=== PATIENT | male | born 1950 | race Caucasian/White ===

== ENCOUNTER 2016-12-06 17:32 | Emergency (ER) | payer MEDICARE, MEDICAID ==
[~2016-12-06] VITALS: Ht 182.9 cm; Wt 86.0 kg
[~2016-12-06 17:32] MED LIST: CELE100C PO; DOXY100C PO; GABA800T PO; IMIPRAM HCL PO; OLME1TAB18 PO; P50 PO; PANT40TA4 PO; TIOT18CA3 IH; TRAM50TA3 PO; TUSSIN; benadryl; dilaudid; fluoxetine; naproxen PO; nexium; risperidone PO; seroquel; tramadol PO
[2016-12-06] MEDS ORDERED: KETOROLAC 60MG/2ML VIAL IM ONE (19:00)
[2016-12-06] MEDS ORDERED: HYDROCODONE/ACETAMINOPHEN 10/325MG TABLET PO ONE (21:45)
[2016-12-06 22:31] VITALS: BP 127/84
== END 2016-12-06 22:32 | disposition home or self-care (01) ==
LOC: ER 18:19
DX: S42.034A Nondisplaced fracture of lateral end of right clavicle, initial encounter for closed fracture (principal); M19.90 Unspecified osteoarthritis, unspecified site; I11.0 Hypertensive heart disease with heart failure; F32.9 Major depressive disorder, single episode, unspecified; J44.9 Chronic obstructive pulmonary disease, unspecified; Z86.73 Personal history of transient ischemic attack (TIA), and cerebral infarction without residual deficits; Z88.0 Allergy status to penicillin; W01.0XXA Fall on same level from slipping, tripping and stumbling without subsequent striking against object, initial encounter; Y93.89 Activity, other specified; Y92.480 Sidewalk as the place of occurrence of the external cause
CPT/HCPCS: 73030; 96372; 99284; J1885; A4565

== ENCOUNTER 2017-03-18 13:21 | Emergency (ER) | payer MEDICARE, MEDICAID ==
[~2017-03-18] VITALS: Ht 170.2 cm; Wt 82.0 kg
[2017-03-18] MEDS ORDERED: HYDROCODONE/ACETAMINOPHEN 5/325MG TABLET PO ONE (14:30)
[2017-03-18 16:10] VITALS: BP 157/89
[2017-03-18] MEDS ORDERED: LIDOCAINE/EPINEPHR/TETRACAINE 3ML TP ONE (16:15)
== END 2017-03-18 17:42 | disposition home or self-care (01) ==
LOC: ER 13:49
DX: S01.01XA Laceration without foreign body of scalp, initial encounter (principal); I50.9 Heart failure, unspecified; I11.0 Hypertensive heart disease with heart failure; J44.9 Chronic obstructive pulmonary disease, unspecified; F32.9 Major depressive disorder, single episode, unspecified; Z86.73 Personal history of transient ischemic attack (TIA), and cerebral infarction without residual deficits; Z88.0 Allergy status to penicillin; Y08.89XA Assault by other specified means, initial encounter; Y93.89 Activity, other specified; Y92.89 Other specified places as the place of occurrence of the external cause; Y99.8 Other external cause status
CPT/HCPCS: 12002; 70450; 99284

== ENCOUNTER 2018-03-04 04:31 | Inpatient (IN) | payer MEDICARE, MEDICAID ==
[~2018-03-04] VITALS: Ht 170.2 cm; Wt 92.5 kg
[2018-03-04] MEDS ORDERED: METHYLPREDNISOLONE SOD SUCC 125 MG/2 ML VIAL IV STA (10:37)
[2018-03-04] MEDS ORDERED: ALBUTEROL (0.083%) 2.5MG/3ML NEB HHN STA ×2 (10:37→13:12)
[2018-03-04 11:30] LABS: BASOPHILS % 0.3 % (0.0-2.0); EOSINOPHILS % 5.5 % (0.0-5.0); HEMATOCRIT. 45.2 % (42.0-52.0); HEMOGLOBIN. 15.2 g/dL (14.0-18.0); MEAN CORPUSCULAR HEMOGLOBIN 29.4 pg (28.0-32.0); MEAN CORPUSCULAR VOLUME 87.5 fL (80.0-94.0); MEAN PLATELET VOLUME 8.6 fl (7.4-10.4); MONOCYTES % 7.6 % (2.0-8.0); NEUTROPHILS % 58.6 % (40.0-76.0); PLATELET 196 x1000/uL (130-400); RED BLOOD CELL COUNT 5.16 mill/uL (4.7-6.1); RED CELL DISTRIBUTION WIDTH 14.2 % (11.6-14.6)
[2018-03-04 11:36] LABS: CHLORIDE 109 mEq/L (98-107)
[2018-03-04] MEDS ORDERED: ACETAMINOPHEN 500MG TABLET PO NR (12:00)
[2018-03-04] MEDS ORDERED: IPRATROPIUM BROMIDE (0.02%) 0.5MG/2.5ML NEB HHN STA (13:12)
[2018-03-04] MEDS ORDERED: IPRATROPIUM/ALBUTEROL 0.5-3(2.5)MG/3ML NEB HHN PRN (16:00)
[2018-03-04] MEDS ORDERED: HYDROCODONE/ACETAMINOPHEN 5/325MG TABLET PO ONE ×2 (16:45→17:30)
[2018-03-04] MEDS ORDERED: IPRATROPIUM/ALBUTEROL 0.5-3(2.5)MG/3ML NEB HHN SCH (18:00)
[2018-03-04 23:00] VITALS: BP_SYST 148; BP_DIAS 82; BP_DIAS 84
[2018-03-04] MEDS ORDERED: ACETAMINOPHEN 325MG TABLET PO PRN (23:30)
[2018-03-05] MEDS: COLCHICINE 0.6MG TABLET PO SCH ×3 (00:51→21:44)
[2018-03-05] MEDS: NICOTINE 21MG PATCH TD SCH ×2 (00:51→21:44)
[2018-03-05 04:00] VITALS: BP 100/58
[2018-03-05] MEDS ORDERED: METHYLPREDNISOLONE SOD SUCC 125 MG/2 ML VIAL IV SCH (06:00)
[2018-03-05] MEDS: IPRATROPIUM/ALBUTEROL 0.5-3(2.5)MG/3ML NEB HHN SCH ×3 (08:21→20:25)
[2018-03-05] MEDS ORDERED: ACETAMINOPHEN 325MG TABLET PO PRN (09:30)
[2018-03-05] MEDS ORDERED: DIPHENHYDRAMINE 50MG/ML VIAL IV PRN (09:30)
[2018-03-05] MEDS ORDERED: MAGNESIUM/ALUMINUM HYDROXIDE/SIMETHICONE 30ML UDC PO PRN (09:30)
[2018-03-05] MEDS ORDERED: BISACODYL 10MG SUPP PR PRN (09:30)
[2018-03-05] MEDS ORDERED: ACETAMINOPHEN 650MG/20.3ML UDC GT PRN (09:30)
[2018-03-05] MEDS ORDERED: DOCUSATE SODIUM 100MG CAPSULE PO PRN (09:30)
[2018-03-05] MEDS ORDERED: CLONIDINE 0.1MG TABLET PO PRN (09:30)
[2018-03-05] MEDS ORDERED: NA PHOS,M-B/NA PHOS,DI-BA ENEMA 118ML PR PRN (09:30)
[2018-03-05] MEDS ORDERED: BISACODYL 5MG TABLET PO PRN (09:30)
[2018-03-05] MEDS ORDERED: GUAIFENESIN 200MG/10ML SUGAR FREE UDC PO PRN (09:30)
[2018-03-05] MEDS ORDERED: ONDANSETRON HCL 4MG/2ML INJ IV PRN (09:30)
[2018-03-05] MEDS ORDERED: ACETAMINOPHEN 650MG SUPP PR PRN (09:30)
[2018-03-05 12:00] VITALS: BP 143/71
[2018-03-05] MEDS: HYDROCODONE/ACETAMINOPHEN 10/325MG TABLET PO PRN ×2 (13:43→21:44)
[2018-03-05 16:00] VITALS: BP 124/68
[2018-03-05 20:00] VITALS: BP 146/56
[2018-03-05] MEDS: METHYLPREDNISOLONE SOD SUCC 40 MG/ML VIAL IV SCH (21:56)
[2018-03-05] MEDS: ENOXAPARIN 30MG/0.3ML SYR SUBCUT SCH (21:58)
[2018-03-06] VITALS: BP 136/50
[2018-03-06] MEDS: IPRATROPIUM/ALBUTEROL 0.5-3(2.5)MG/3ML NEB HHN SCH ×4 (02:41→20:37)
[2018-03-06 04:00] VITALS: BP 124/71
[2018-03-06] MEDS: METHYLPREDNISOLONE SOD SUCC 40 MG/ML VIAL IV SCH ×2 (05:52→17:33)
[2018-03-06] MEDS: HYDROCODONE/ACETAMINOPHEN 10/325MG TABLET PO PRN ×3 (05:53→22:53)
[2018-03-06 08:00] VITALS: BP 142/72
[2018-03-06 08:29] LABS: HEMATOCRIT. 43.5 % (42.0-52.0); HEMOGLOBIN. 14.3 g/dL (14.0-18.0); MEAN CORPUSCULAR HEMOGLOBIN 28.8 pg (28.0-32.0); MEAN CORPUSCULAR VOLUME 87.8 fL (80.0-94.0); MEAN PLATELET VOLUME 9.3 fl (7.4-10.4); PLATELET 227 x1000/uL (130-400); RED BLOOD CELL COUNT 4.96 mill/uL (4.7-6.1)
[2018-03-06] MEDS: COLCHICINE 0.6MG TABLET PO SCH ×2 (08:32→21:05)
[2018-03-06] MEDS: ENOXAPARIN 30MG/0.3ML SYR SUBCUT SCH ×2 (08:34→21:00)
[2018-03-06 09:29] LABS: CHLORIDE 106 mEq/L (98-107)
[2018-03-06 09:38] LABS: HDL CHOLESTEROL 73 mg/dL (40-59)
[2018-03-06 09:45] LABS: LDL CHOLESTEROL 67 mg/dL (5-100)
[2018-03-06 11:59] LABS: PLATELET ESTIMATE NORMAL
[2018-03-06 12:00] VITALS: BP 148/77
[2018-03-06 16:00] VITALS: BP 155/81
[2018-03-06] MEDS: GUAIFENESIN 600MG ER TABLET PO SCH ×2 (17:33→21:05)
[2018-03-06 20:00] VITALS: BP 143/77
[2018-03-06 21:06] LABS: CLARITY URINE CLEAR (CLEAR); COLOR URINE YELLOW (YELLOW); KETONES URINE NEGATIVE (NEGATIVE); LEUKOCYTE ESTERASE URINE NEGATIVE (NEGATIVE); NITRITE URINE NEGATIVE (NEGATIVE); OCCULT BLOOD URINE NEGATIVE (NEGATIVE); PROTEIN URINE NEGATIVE (NEGATIVE); SPECIFIC GRAVITY URINE 1.017 (1.005-1.030); UROBILINOGEN URINE 0.2 E.U./dL (0.2-1.0)
[2018-03-06] MEDS: NICOTINE 21MG PATCH TD SCH (21:06)
[2018-03-06 21:20] LABS: *AMPHETAMINES SCREEN URINE NEGATIVE (NEGATIVE); *BARBITURATES SCREEN URINE NEGATIVE (NEGATIVE); *BENZODIAZEPINES SCREEN URINE NEGATIVE (NEGATIVE); *COCAINE SCREEN URINE PRESUMTIVE POSITIVE (NEGATIVE); METHADONE URINE SCREEN NEGATIVE (NEGATIVE); OPIATES URINE SCREEN PRESUMTIVE POSITIVE (NEGATIVE)
[2018-03-06 21:21] LABS: CANNABINOID URINE SCREEN NEGATIVE (NEGATIVE); PHENCYCLIDINE URINE SCREEN NEGATIVE (NEGATIVE)
[2018-03-07] VITALS: BP 142/73
[2018-03-07] MEDS: IPRATROPIUM/ALBUTEROL 0.5-3(2.5)MG/3ML NEB HHN SCH ×2 (01:29→09:09)
[2018-03-07 04:00] VITALS: BP 135/56
[2018-03-07 08:00] VITALS: BP 170/85
[2018-03-07] MEDS: GUAIFENESIN 600MG ER TABLET PO SCH (08:52)
[2018-03-07] MEDS: METHYLPREDNISOLONE SOD SUCC 40 MG/ML VIAL IV SCH ×2 (08:52→17:39)
[2018-03-07] MEDS: COLCHICINE 0.6MG TABLET PO SCH (08:52)
[2018-03-07] MEDS: ENOXAPARIN 30MG/0.3ML SYR SUBCUT SCH (09:00)
[2018-03-07] MEDS: HYDROCODONE/ACETAMINOPHEN 10/325MG TABLET PO PRN (10:09)
[2018-03-07 12:30] VITALS: BP 144/74
[2018-03-07 16:00] VITALS: BP 147/78
[2018-03-07] MEDS: NICOTINE 21MG PATCH TD SCH (17:57)
== END 2018-03-07 18:00 | disposition home or self-care (01) | DRG 917 ==
LOC: ER 04:31 → 7WST 14:41 → EDBEDREQ 15:06 → ENRESERV 20:41 → 6WST 03-07 11:34
PROVIDERS: ADMIT Family Medicine; ATTEND Family Medicine
DX: T40.5X1A Poisoning by cocaine, accidental (unintentional), initial encounter (principal); J96.01 Acute respiratory failure with hypoxia; J68.0 Bronchitis and pneumonitis due to chemicals, gases, fumes and vapors; I10 Essential (primary) hypertension; F17.210 Nicotine dependence, cigarettes, uncomplicated; F32.9 Major depressive disorder, single episode, unspecified; M19.90 Unspecified osteoarthritis, unspecified site; Y92.89 Other specified places as the place of occurrence of the external cause; Z82.49 Family history of ischemic heart disease and other diseases of the circulatory system; Z88.0 Allergy status to penicillin; Z86.73 Personal history of transient ischemic attack (TIA), and cerebral infarction without residual deficits; Z59.0 Homelessness; Z71.51 Drug abuse counseling and surveillance of drug abuser
CPT/HCPCS: 36415; 71045; 73030; 80061; 80305; 83880; 84484; 94640; 96374; 99285; J1650; J2920; J2930; J7611; J7620

== ENCOUNTER 2018-03-21 01:08 | Emergency (ER) | payer MEDICARE, MEDICAID ==
[~2018-03-21] VITALS: Ht 182.9 cm; Wt 96.0 kg
[~2018-03-21 01:08] MED LIST changes: -IMIPRAM HCL PO; -TUSSIN; -benadryl; -dilaudid; -fluoxetine; -naproxen PO; -nexium; -risperidone PO; -seroquel; -tramadol PO
[2018-03-21 01:14] VITALS: BP 143/70
== END 2018-03-21 08:27 | disposition left against medical advice (07) ==
LOC: ER 01:21
DX: Z53.21 Procedure and treatment not carried out due to patient leaving prior to being seen by health care provider (principal)

== ENCOUNTER 2018-03-21 22:14 | Emergency (ER) | payer MEDICARE, MEDICAID ==
[~2018-03-21] VITALS: Ht 170.2 cm; Wt 93.0 kg
[2018-03-22 01:49] VITALS: BP 157/88
== END 2018-03-22 06:02 | disposition left against medical advice (07) ==
LOC: ER 22:14
DX: M25.512 Pain in left shoulder (principal); Z53.21 Procedure and treatment not carried out due to patient leaving prior to being seen by health care provider

== ENCOUNTER 2018-03-22 07:09 | Emergency (ER) | payer MEDICARE, MEDICAID ==
[~2018-03-22] VITALS: Ht 170.2 cm; Wt 95.0 kg
[2018-03-22] MEDS ORDERED: KETOROLAC 30MG/ML VIAL IV STA (11:10)
[2018-03-22] MEDS ORDERED: METHYLPREDNISOLONE SOD SUCC 125 MG/2 ML VIAL IV STA (11:10)
[2018-03-22] MEDS ORDERED: IPRATROPIUM/ALBUTEROL 0.5-3(2.5)MG/3ML NEB HHN ONE ×2 (11:15→15:00)
[2018-03-22 11:58] LABS: BASOPHILS % 0.8 % (0.0-2.0); EOSINOPHILS % 6.6 % (0.0-5.0); HEMATOCRIT. 41.7 % (42.0-52.0); HEMOGLOBIN. 13.9 g/dL (14.0-18.0); LYMPHOCYTES % 21.9 % (20.0-50.0); MEAN CORPUSCULAR HEMOGLOBIN 29.3 pg (28.0-32.0); MEAN CORPUSCULAR VOLUME 87.9 fL (80.0-94.0); MEAN PLATELET VOLUME 8.4 fl (7.4-10.4); MONOCYTES % 8.5 % (2.0-8.0); NEUTROPHILS % 62.2 % (40.0-76.0); PLATELET 171 x1000/uL (130-400); RED BLOOD CELL COUNT 4.74 mill/uL (4.7-6.1); RED CELL DISTRIBUTION WIDTH 13.8 % (11.6-14.6)
[2018-03-22 12:05] LABS: CHLORIDE 111 mEq/L (98-107); PARTIAL THROMBOPLASTIN TIME 35.9 sec (23.4-31.0); PROTHROMBIN TIME 10.1 sec (9.1-11.1)
[2018-03-22 12:10] LABS: ETHANOL BLOOD < 10 mg/dL
[2018-03-22] MEDS ORDERED: KETOROLAC 60MG/2ML VIAL IM ONE (17:30)
[2018-03-22 17:43] VITALS: BP 154/72
== END 2018-03-22 17:45 | disposition home or self-care (01) ==
LOC: ER 07:33 → CANBEDREQ 03-23 01:54
DX: J44.9 Chronic obstructive pulmonary disease, unspecified (principal); M75.102 Unspecified rotator cuff tear or rupture of left shoulder, not specified as traumatic; I10 Essential (primary) hypertension; M19.90 Unspecified osteoarthritis, unspecified site; F14.10 Cocaine abuse, uncomplicated; F17.200 Nicotine dependence, unspecified, uncomplicated; Z86.73 Personal history of transient ischemic attack (TIA), and cerebral infarction without residual deficits; Z59.0 Homelessness; Z88.0 Allergy status to penicillin; Z79.899 Other long term (current) drug therapy; Z98.890 Other specified postprocedural states
CPT/HCPCS: 36415; 71045; 73030; 80053; 83880; 84484; 85025; 85610; 85730; 87186; 94640; 96372; 96374; 96375; 99284; J1885; J2930; J7620

== ENCOUNTER 2018-07-12 10:59 | Emergency (ER) | payer MEDICARE, MEDICAID ==
[~2018-07-12] VITALS: Ht 170.2 cm; Wt 77.0 kg
[2018-07-12] MEDS ORDERED: IBUPROFEN 600MG TABLET PO STA (12:17)
[2018-07-12 14:47] VITALS: BP 140/80
== END 2018-07-12 14:51 | disposition home or self-care (01) ==
LOC: ER 10:59
DX: M25.512 Pain in left shoulder (principal); M25.511 Pain in right shoulder; F32.9 Major depressive disorder, single episode, unspecified; I10 Essential (primary) hypertension; F17.210 Nicotine dependence, cigarettes, uncomplicated; F14.10 Cocaine abuse, uncomplicated; Z88.0 Allergy status to penicillin; Z86.59 Personal history of other mental and behavioral disorders; V02.99XA Pedestrian with other conveyance injured in collision with two- or three-wheeled motor vehicle, unspecified whether traffic or nontraffic accident, initial encounter; Y93.89 Activity, other specified; Y92.89 Other specified places as the place of occurrence of the external cause; Y99.8 Other external cause status
CPT/HCPCS: 73030; 99283

== ENCOUNTER 2018-10-26 20:16 | Emergency (ER) | payer MEDICARE, MEDICAID ==
[~2018-10-26] VITALS: Ht 170.2 cm; Wt 82.0 kg
[2018-10-26 20:52] VITALS: BP 130/110
== END 2018-10-26 20:20 | disposition left against medical advice (07) ==
LOC: ER 20:16
DX: Z53.21 Procedure and treatment not carried out due to patient leaving prior to being seen by health care provider (principal); I10 Essential (primary) hypertension; G47.00 Insomnia, unspecified; F17.200 Nicotine dependence, unspecified, uncomplicated; Z88.0 Allergy status to penicillin; Z86.73 Personal history of transient ischemic attack (TIA), and cerebral infarction without residual deficits

== ENCOUNTER 2018-12-01 05:10 | Emergency (ER) | payer MEDICARE, MEDICAID ==
[~2018-12-01] VITALS: Ht 177.8 cm; Wt 82.0 kg
[2018-12-01 05:33] VITALS: BP 149/69
[2018-12-01] MEDS ORDERED: MAGNESIUM 2 G PREMIX 50 ML IV STA (06:10)
[2018-12-01] MEDS ORDERED: METHYLPREDNISOLONE SOD SUCC 125 MG/2 ML VIAL IV STA (06:10)
[2018-12-01] MEDS ORDERED: IPRATROPIUM BROMIDE (0.02%) 0.5MG/2.5ML NEB HHN STA (06:10)
[2018-12-01] MEDS ORDERED: ALBUTEROL (0.083%) 2.5MG/3ML NEB HHN STA (06:10)
[2018-12-01 06:29] LABS: BASOPHILS % 0.4 % (0.0-2.0); EOSINOPHILS % 2.2 % (0.0-5.0); HEMOGLOBIN. 14.6 g/dL (14.0-18.0); LYMPHOCYTES % 24.5 % (20.0-50.0); MEAN CORPUSCULAR HEMOGLOBIN 29.5 pg (28.0-32.0); MEAN CORPUSCULAR VOLUME 87.2 fL (80.0-94.0); MEAN PLATELET VOLUME 8.5 fl (7.4-10.4); MONOCYTES % 9.2 % (2.0-8.0); NEUTROPHILS % 63.7 % (40.0-76.0); PLATELET 163 x1000/uL (130-400); RED BLOOD CELL COUNT 4.93 mill/uL (4.7-6.1); RED CELL DISTRIBUTION WIDTH 14.6 % (11.6-14.6)
[2018-12-01 06:33] LABS: CHLORIDE 110 mEq/L (98-107)
== END 2018-12-01 07:24 | disposition left against medical advice (07) ==
LOC: ER 05:10
DX: J45.901 Unspecified asthma with (acute) exacerbation (principal); F91.1 Conduct disorder, childhood-onset type; I10 Essential (primary) hypertension; F17.200 Nicotine dependence, unspecified, uncomplicated; Z88.0 Allergy status to penicillin
CPT/HCPCS: 36415; 71045; 80053; 83880; 84484; 85025; 94640; 99284; J7611

== ENCOUNTER 2018-12-21 12:43 | Inpatient (IN) | payer MEDICARE, MEDICAID ==
[~2018-12-21] VITALS: Ht 152.4 cm; Wt 81.2 kg
[2018-12-21] MEDS ORDERED: IBUPROFEN 600MG TABLET PO ONE (13:45)
[2018-12-21] MEDS ORDERED: IPRATROPIUM BROMIDE (0.02%) 0.5MG/2.5ML NEB HHN STA (14:54)
[2018-12-21] MEDS ORDERED: ALBUTEROL (0.083%) 2.5MG/3ML NEB HHN STA (14:54)
[2018-12-21] MEDS ORDERED: BACITRACIN ZINC OINT UDPKT TOP ONE (15:45)
[2018-12-21] MEDS ORDERED: IBUPROFEN 600MG TABLET PO PRN (17:45)
[2018-12-21 18:26] LABS: BASOPHILS % 0.3 % (0.0-2.0); CHLORIDE 107 mEq/L (98-107); EOSINOPHILS % 0.9 % (0.0-5.0); HEMATOCRIT. 44.2 % (42.0-52.0); HEMOGLOBIN. 14.9 g/dL (14.0-18.0); LYMPHOCYTES % 16.3 % (20.0-50.0); MEAN CORPUSCULAR HEMOGLOBIN 29.1 pg (28.0-32.0); MEAN CORPUSCULAR VOLUME 86.6 fL (80.0-94.0); MEAN PLATELET VOLUME 8.3 fl (7.4-10.4); MONOCYTES % 10.8 % (2.0-8.0); NEUTROPHILS % 71.7 % (40.0-76.0); PLATELET 181 x1000/uL (130-400); RED BLOOD CELL COUNT 5.11 mill/uL (4.7-6.1); RED CELL DISTRIBUTION WIDTH 14.8 % (11.6-14.6)
[2018-12-21] MEDS ORDERED: LEVOFLOXACIN 500MG PREMIX 100 ML IV SCH (18:30)
[2018-12-21] MEDS ORDERED: DOCUSATE SODIUM 100MG CAPSULE PO PRN (18:30)
[2018-12-21] MEDS ORDERED: MAGNESIUM/ALUMINUM HYDROXIDE/SIMETHICONE 30ML UDC PO PRN (18:30)
[2018-12-21] MEDS ORDERED: CLONIDINE 0.1MG TABLET PO PRN (18:30)
[2018-12-21] MEDS ORDERED: GUAIFENESIN 200MG/10ML SUGAR FREE UDC PO PRN (18:30)
[2018-12-21] MEDS ORDERED: ONDANSETRON HCL 4MG/2ML INJ IV PRN (18:30)
[2018-12-21] MEDS ORDERED: ACETAMINOPHEN 325MG TABLET PO PRN (18:30)
[2018-12-21] MEDS ORDERED: IPRATROPIUM/ALBUTEROL 0.5-3(2.5)MG/3ML NEB NEB PRN (18:30)
[2018-12-21] MEDS ORDERED: NA PHOS,M-B/NA PHOS,DI-BA ENEMA 118ML PR PRN (18:30)
[2018-12-21 19:14] LABS: BG BASE EXCESS 0.7 mmol/L (-2.0-2.0); BG CARBOXYHEMOGLOBIN 1.3 % (0.5-1.5); BG DEOXYHEMOGLOBIN 6.5 % (0.0-5.0); BG FRACTION INSPIRED OXYGEN 21; BG HCO3 ACT 25.1 mmol/L (22.0-26.0); BG METHEMOGLOBIN 0.2 % (0.0-1.5); BG OXYGEN SATURATION 93.4 % (92.0-98.5); BG PCO2 39.6 mmHg (35.0-45.0); BG PO2 66.1 mmHg (75.0-100.0); BG SAMPLE SITE LEFT RADIAL; BG TOTAL HEMOGLOBIN 15.6 g/dL (12.0-18.0); BG VENT MODE ROOM AIR
[2018-12-21 20:41] LABS: CLARITY URINE CLOUDY (CLEAR); COLOR URINE DARK YELLOW (YELLOW); KETONES URINE TRACE (NEGATIVE); LEUKOCYTE ESTERASE URINE NEGATIVE (NEGATIVE); NITRITE URINE NEGATIVE (NEGATIVE); OCCULT BLOOD URINE NEGATIVE (NEGATIVE); PROTEIN URINE TRACE (NEGATIVE); SPECIFIC GRAVITY URINE 1.028 (1.005-1.030)
[2018-12-21] MEDS ORDERED: LEVOFLOXACIN 500MG PREMIX 100 ML IV NR (21:00)
[2018-12-21 22:00] VITALS: BP 139/72
[2018-12-22] VITALS: BP 139/72
[2018-12-22] MEDS: IPRATROPIUM/ALBUTEROL 0.5-3(2.5)MG/3ML NEB NEB SCH ×4 (01:06→21:19)
[2018-12-22] MEDS: METHYLPREDNISOLONE SOD SUCC 125 MG/2 ML VIAL IV SCH ×4 (01:49→17:21)
[2018-12-22] MEDS: LEVOFLOXACIN 500MG PREMIX 100 ML IV SCH (01:50)
[2018-12-22] MEDS: MORPHINE SULFATE 2 MG/ML CPJ (NOT FOR IM USE) IV PRN ×2 (01:57→06:16)
[2018-12-22 04:00] VITALS: BP 139/60
[2018-12-22 06:54] LABS: HEMATOCRIT. 41.2 % (42.0-52.0); HEMOGLOBIN. 13.7 g/dL (14.0-18.0); MEAN CORPUSCULAR HEMOGLOBIN 29.1 pg (28.0-32.0); MEAN CORPUSCULAR VOLUME 87.8 fL (80.0-94.0); MEAN PLATELET VOLUME 9.2 fl (7.4-10.4); PLATELET 162 x1000/uL (130-400); RED BLOOD CELL COUNT 4.69 mill/uL (4.7-6.1); RED CELL DISTRIBUTION WIDTH 15.1 % (11.6-14.6)
[2018-12-22 08:00] VITALS: BP 161/93
[2018-12-22] MEDS: ASPIRIN 81MG EC TABLET PO SCH (08:56)
[2018-12-22] MEDS: AMLODIPINE 10MG TABLET PO SCH (08:56)
[2018-12-22] MEDS: ENOXAPARIN 40MG/0.4ML SYR SUBCUT SCH (08:57)
[2018-12-22] MEDS: HYDROCODONE/APAP 7.5/325MG 1 TAB TABLET PO PRN ×3 (08:58→20:35)
[2018-12-22 12:00] VITALS: BP 143/72
[2018-12-22 13:10] LABS: PLATELET ESTIMATE NORMAL
[2018-12-22 16:00] VITALS: BP 135/81
[2018-12-22 20:00] VITALS: BP 133/65
[2018-12-23] VITALS: BP 112/63
[2018-12-23] MEDS: LEVOFLOXACIN 500MG PREMIX 100 ML IV SCH (00:53)
[2018-12-23] MEDS: IPRATROPIUM/ALBUTEROL 0.5-3(2.5)MG/3ML NEB NEB SCH ×3 (01:01→14:32)
[2018-12-23 04:00] VITALS: BP 137/69
[2018-12-23] MEDS: METHYLPREDNISOLONE SOD SUCC 125 MG/2 ML VIAL IV SCH (06:53)
[2018-12-23 08:00] VITALS: BP 148/72
[2018-12-23] MEDS: ENOXAPARIN 40MG/0.4ML SYR SUBCUT SCH (09:18)
[2018-12-23] MEDS: AMLODIPINE 10MG TABLET PO SCH (09:18)
[2018-12-23] MEDS: ASPIRIN 81MG EC TABLET PO SCH (09:18)
[2018-12-23] MEDS: HYDROCODONE/APAP 7.5/325MG 1 TAB TABLET PO PRN (09:19)
[2018-12-23 12:00] VITALS: BP 144/82
[2018-12-23] MEDS ORDERED: METHYLPREDNISOLONE SOD SUCC 40 MG/ML VIAL IV SCH (14:00)
== END 2018-12-23 14:40 | disposition left against medical advice (07) | DRG 191 ==
LOC: ER 13:21 → 6EST 17:33 → ENRESERV 21:08
PROVIDERS: ADMIT Hospitalist; ATTEND Hospitalist
DX: J44.1 Chronic obstructive pulmonary disease with (acute) exacerbation (principal); L02.411 Cutaneous abscess of right axilla; M25.562 Pain in left knee; I10 Essential (primary) hypertension; M19.90 Unspecified osteoarthritis, unspecified site; F17.210 Nicotine dependence, cigarettes, uncomplicated; M25.512 Pain in left shoulder; F32.9 Major depressive disorder, single episode, unspecified; Z88.0 Allergy status to penicillin; Z71.6 Tobacco abuse counseling; Z79.899 Other long term (current) drug therapy
CPT/HCPCS: 36415; 36600; 71045; 73030; 73564; 80048; 80061; 81003; 82375; 82805; 93005; 93970; 94640; 97162; 99285; J1650; J1956; J2270; J2920; J2930; J7611; J7620

== ENCOUNTER 2018-12-31 10:56 | Emergency (ER) | payer MEDICARE, MEDICAID ==
[~2018-12-31] VITALS: Ht 170.2 cm; Wt 91.0 kg
[2018-12-31] MEDS ORDERED: BACITRACIN ZINC OINT UDPKT TOP ONE (12:45)
[2018-12-31] MEDS ORDERED: LIDOCAINE HCL/PF 1% 10 MG/ML 5ML VIAL IJ ONE (12:45)
[2018-12-31] MEDS ORDERED: ACETAMINOPHEN WITH CODEINE 300/30MG TABLET PO ONE (12:45)
[2018-12-31 14:41] LABS: BASOPHILS % 0.4 % (0.0-2.0); EOSINOPHILS % 1.9 % (0.0-5.0); HEMATOCRIT. 39.7 % (42.0-52.0); HEMOGLOBIN. 13.4 g/dL (14.0-18.0); LYMPHOCYTES % 14.2 % (20.0-50.0); MEAN CORPUSCULAR HEMOGLOBIN 29.4 pg (28.0-32.0); MEAN PLATELET VOLUME 7.6 fl (7.4-10.4); MONOCYTES % 7.1 % (2.0-8.0); NEUTROPHILS % 76.4 % (40.0-76.0); PLATELET 210 x1000/uL (130-400); RED BLOOD CELL COUNT 4.56 mill/uL (4.7-6.1); RED CELL DISTRIBUTION WIDTH 14.7 % (11.6-14.6)
[2018-12-31 14:43] LABS: CHLORIDE 111 mEq/L (98-107)
[2018-12-31 14:44] LABS: INR 0.9; PROTHROMBIN TIME 9.8 sec (9.6-11.0)
[2018-12-31 15:30] VITALS: BP 121/75
== END 2018-12-31 15:59 | disposition left against medical advice (07) ==
LOC: ER 10:56 → EDBEDREQ 14:30 → ENRESERV 15:00 → ER 15:59 → CANBEDREQ 19:50
DX: L02.411 Cutaneous abscess of right axilla (principal); J44.9 Chronic obstructive pulmonary disease, unspecified; Z88.0 Allergy status to penicillin; I10 Essential (primary) hypertension; Z86.73 Personal history of transient ischemic attack (TIA), and cerebral infarction without residual deficits
CPT/HCPCS: 36415; 80053; 85025; 85610; 99283; J3490

== ENCOUNTER 2018-12-31 20:52 | Inpatient (IN) | payer MEDICARE, MEDICAID ==
[~2018-12-31] VITALS: Ht 170.2 cm; Wt 90.7 kg
[2018-12-31] MEDS ORDERED: ACETAMINOPHEN 325MG TABLET PO PRN (21:30)
[2018-12-31] MEDS ORDERED: ONDANSETRON HCL 4MG/2ML INJ IV PRN (21:30)
[2018-12-31] MEDS ORDERED: HYDROCODONE/ACETAMINOPHEN 5/325MG TABLET PO PRN (21:30)
[2018-12-31] MEDS ORDERED: IPRATROPIUM/ALBUTEROL 0.5-3(2.5)MG/3ML NEB NEB PRN (21:30)
[2018-12-31] MEDS ORDERED: DOCUSATE SODIUM 100MG CAPSULE PO PRN (21:30)
[2018-12-31] MEDS ORDERED: GUAIFENESIN 200MG/10ML SUGAR FREE UDC PO PRN (21:30)
[2018-12-31] MEDS ORDERED: CLINDAMYCIN 600MG PREMIX 50 ML IV SCH (22:45)
[2018-12-31] MEDS ORDERED: ALBUTEROL (0.083%) 2.5MG/3ML NEB HHN STA (22:48)
[2018-12-31] MEDS ORDERED: METHYLPREDNISOLONE SOD SUCC 125 MG/2 ML VIAL IV STA (22:48)
[2018-12-31] MEDS ORDERED: MORPHINE SULFATE 4 MG/ML CPJ (NOT FOR IM USE) IV STA (22:48)
[2018-12-31] MEDS ORDERED: IPRATROPIUM BROMIDE (0.02%) 0.5MG/2.5ML NEB HHN STA (22:48)
[2018-12-31] MEDS ORDERED: ONDANSETRON HCL 4MG/2ML INJ IV STA (22:48)
[2018-12-31] MEDS ORDERED: CLINDAMYCIN 600 MG in DEXTROSE 5% WATER 50 ML IV ONE (23:00)
[2018-12-31] MEDS ORDERED: SODIUM CHLORIDE 0.9% 1000ML BAG (SEPSIS BOLUS) IV ONE (23:00)
[2018-12-31 23:30] LABS: BASOPHILS % 0.3 % (0.0-2.0); EOSINOPHILS % 1.9 % (0.0-5.0); HEMATOCRIT. 39.2 % (42.0-52.0); HEMOGLOBIN. 13.2 g/dL (14.0-18.0); LYMPHOCYTES % 15.1 % (20.0-50.0); MEAN CORPUSCULAR HEMOGLOBIN 29.4 pg (28.0-32.0); MEAN CORPUSCULAR VOLUME 87.6 fL (80.0-94.0); MEAN PLATELET VOLUME 8.5 fl (7.4-10.4); MONOCYTES % 6.8 % (2.0-8.0); NEUTROPHILS % 75.9 % (40.0-76.0); PLATELET 216 x1000/uL (130-400); RED BLOOD CELL COUNT 4.48 mill/uL (4.7-6.1); RED CELL DISTRIBUTION WIDTH 14.8 % (11.6-14.6)
[2018-12-31] MEDS ORDERED: LEVOFLOXACIN 750MG PREMIX 150 ML IV ONE (23:30)
[2018-12-31 23:35] LABS: CHLORIDE 109 mEq/L (98-107)
[2019-01-01 00:51] LABS: CLARITY URINE CLEAR (CLEAR); COLOR URINE YELLOW (YELLOW); KETONES URINE TRACE (NEGATIVE); LEUKOCYTE ESTERASE URINE NEGATIVE (NEGATIVE); NITRITE URINE NEGATIVE (NEGATIVE); OCCULT BLOOD URINE NEGATIVE (NEGATIVE); PROTEIN URINE NEGATIVE (NEGATIVE); SPECIFIC GRAVITY URINE 1.026 (1.005-1.030); UROBILINOGEN URINE 0.2 E.U./dL (0.2-1.0)
[2019-01-01 02:30] VITALS: BP 133/75
[2019-01-01 03:13] LABS: HEMATOCRIT. 38.6 % (42.0-52.0); HEMOGLOBIN. 12.8 g/dL (14.0-18.0); MEAN CORPUSCULAR HEMOGLOBIN 29.1 pg (28.0-32.0); MEAN CORPUSCULAR VOLUME 87.6 fL (80.0-94.0); MEAN PLATELET VOLUME 7.9 fl (7.4-10.4); PLATELET 193 x1000/uL (130-400); RED BLOOD CELL COUNT 4.41 mill/uL (4.7-6.1); RED CELL DISTRIBUTION WIDTH 14.8 % (11.6-14.6)
[2019-01-01 03:31] LABS: CHLORIDE 107 mEq/L (98-107)
[2019-01-01 04:00] VITALS: BP 133/75
[2019-01-01 04:04] LABS: PLATELET ESTIMATE NORMAL
[2019-01-01 08:00] VITALS: BP 177/82
[2019-01-01] MEDS ORDERED: CLINDAMYCIN 600 MG in DEXTROSE 5% WATER 50 ML IV SCH (08:00)
[2019-01-01] MEDS ORDERED: VANCOMYCIN 2,000 MG in DEXT 5% WATER 500 ML IV NR (08:00)
[2019-01-01] MEDS: ENOXAPARIN 40MG/0.4ML SYR SUBCUT SCH (09:00)
[2019-01-01] MEDS ORDERED: LIDOCAINE HCL 1% 20ML VIAL (Pyxis) INJ INFIL ONE (09:15)
[2019-01-01] MEDS: MORPHINE SULFATE 2 MG/ML CPJ (NOT FOR IM USE) IV PRN ×3 (09:44→20:14)
[2019-01-01] MEDS: CLINDAMYCIN 600MG PREMIX 50 ML IV SCH ×2 (11:19→17:07)
[2019-01-01] MEDS: AMLODIPINE 10MG TABLET PO SCH (11:21)
[2019-01-01 12:00] VITALS: BP 184/140
[2019-01-01] MEDS ORDERED: CLONIDINE 0.1MG TABLET PO PRN (14:15)
[2019-01-01] MEDS: HYDRALAZINE HCL 25MG TABLET PO SCH ×2 (14:41→20:11)
[2019-01-01 16:00] VITALS: BP 151/85
[2019-01-01 20:00] VITALS: BP 150/66
[2019-01-01] MEDS ORDERED: VANCOMYCIN 1250MG in DEXTROSE 5% WATER 250ML IV SCH (20:00)
[2019-01-01] MEDS: LORAZEPAM 2MG/ML CPJ IV PRN (20:30)
[2019-01-01] MEDS: IPRATROPIUM/ALBUTEROL 0.5-3(2.5)MG/3ML NEB NEB SCH (23:07)
[2019-01-02] VITALS: BP 137/77
[2019-01-02] MEDS: IPRATROPIUM/ALBUTEROL 0.5-3(2.5)MG/3ML NEB NEB SCH ×4 (01:51→20:22)
[2019-01-02] MEDS: CLINDAMYCIN 600MG PREMIX 50 ML IV SCH ×3 (01:56→16:25)
[2019-01-02] MEDS: MORPHINE SULFATE 2 MG/ML CPJ (NOT FOR IM USE) IV PRN ×4 (02:08→17:31)
[2019-01-02] MEDS: LORAZEPAM 2MG/ML CPJ IV PRN ×2 (02:42→10:41)
[2019-01-02] MEDS: VANCOMYCIN 1 G PREMIX 200 ML IV SCH ×3 (02:57→23:57)
[2019-01-02 04:00] VITALS: BP 142/75
[2019-01-02] MEDS: HYDRALAZINE HCL 25MG TABLET PO SCH ×3 (06:56→21:00)
[2019-01-02 08:00] VITALS: BP 117/64
[2019-01-02] MEDS: AMLODIPINE 10MG TABLET PO SCH (09:28)
[2019-01-02] MEDS: ENOXAPARIN 40MG/0.4ML SYR SUBCUT SCH (09:29)
[2019-01-02 12:00] VITALS: BP 138/69
[2019-01-02 16:00] VITALS: BP 152/79
[2019-01-02 20:00] VITALS: BP 132/79
[2019-01-02] MEDS ORDERED: ZOLPIDEM TARTRATE 5MG TABLET PO PRN (20:45)
[2019-01-03] VITALS: BP 146/76
[2019-01-03] MEDS: IPRATROPIUM/ALBUTEROL 0.5-3(2.5)MG/3ML NEB NEB SCH ×2 (02:27→07:52)
[2019-01-03] MEDS: CLINDAMYCIN 600MG PREMIX 50 ML IV SCH ×3 (03:29→15:50)
[2019-01-03 04:00] VITALS: BP 154/85
[2019-01-03] MEDS: HYDRALAZINE HCL 25MG TABLET PO SCH ×2 (05:17→13:01)
[2019-01-03] MEDS: MORPHINE SULFATE 2 MG/ML CPJ (NOT FOR IM USE) IV PRN (05:18)
[2019-01-03 07:33] LABS: CHLORIDE 103 mEq/L (98-107)
[2019-01-03 08:00] VITALS: BP 137/68
[2019-01-03 08:09] LABS: BASOPHILS % 0.6 % (0.0-2.0); EOSINOPHILS % 2.6 % (0.0-5.0); HEMATOCRIT. 40.5 % (42.0-52.0); HEMOGLOBIN. 13.6 g/dL (14.0-18.0); LYMPHOCYTES % 18.3 % (20.0-50.0); MEAN CORPUSCULAR HEMOGLOBIN 29.2 pg (28.0-32.0); MEAN CORPUSCULAR VOLUME 87.1 fL (80.0-94.0); MONOCYTES % 6.1 % (2.0-8.0); NEUTROPHILS % 72.4 % (40.0-76.0); RED BLOOD CELL COUNT 4.65 mill/uL (4.7-6.1)
[2019-01-03] MEDS: ENOXAPARIN 40MG/0.4ML SYR SUBCUT SCH (09:03)
[2019-01-03] MEDS: AMLODIPINE 10MG TABLET PO SCH (09:04)
[2019-01-03] MEDS: VANCOMYCIN 1 G PREMIX 200 ML IV SCH (09:52)
[2019-01-03] MEDS ORDERED: HYDROCODONE/APAP 7.5/325MG 1 TAB TABLET PO PRN (10:45)
[2019-01-03 12:00] VITALS: BP 137/76
[2019-01-03 12:34] LABS: MEAN PLATELET VOLUME 9.1 fl (7.4-10.4); PLATELET 222 x1000/uL (130-400)
[2019-01-03 16:00] VITALS: BP 148/77
[2019-01-03] MEDS ORDERED: VANCOMYCIN 1250MG in DEXTROSE 5% WATER 250ML IV SCH (23:00)
== END 2019-01-03 20:01 | disposition left against medical advice (07) | DRG 191 ==
LOC: ER 20:52 → 6EST 01-01 00:34 → EDBEDREQ 01-01 00:43 → EDBEDREQDT 01-01 00:43 → EDBEDREQTM 01-01 00:43 → EDBEDREQSVC 01-01 01:23 → ENRESERV 01-01 01:48
PROVIDERS: ADMIT Hospitalist; ATTEND Hospitalist
DX: J44.1 Chronic obstructive pulmonary disease with (acute) exacerbation (principal); L02.411 Cutaneous abscess of right axilla; E87.2 Acidosis; F17.210 Nicotine dependence, cigarettes, uncomplicated; G62.9 Polyneuropathy, unspecified; I10 Essential (primary) hypertension; G89.4 Chronic pain syndrome; M19.90 Unspecified osteoarthritis, unspecified site; L73.2 Hidradenitis suppurativa; Z86.73 Personal history of transient ischemic attack (TIA), and cerebral infarction without residual deficits; Z79.899 Other long term (current) drug therapy; Z88.0 Allergy status to penicillin
CPT/HCPCS: 36415; 71045; 80048; 80053; 80202; 81003; 83605; 84145; 84484; 85025; 93005; 94640; 96365; 96375; 99283; 99291; C1893; J1650; J1956; J2060; J2270; J2405; J2930; J3370; J3490; J7030; J7040; J7060; J7611; J7620

== ENCOUNTER 2019-03-18 18:34 | Inpatient (IN) | payer MEDICARE, OTHER ==
[~2019-03-18] VITALS: Ht 170.2 cm; Wt 86.2 kg
[2019-03-18] MEDS ORDERED: MORPHINE SULFATE 4 MG/ML CPJ (NOT FOR IM USE) IV STA (22:50)
[2019-03-18] MEDS ORDERED: ONDANSETRON HCL 4MG/2ML INJ IV STA (22:50)
[2019-03-18] MEDS ORDERED: SODIUM CHLORIDE 0.9% 1,000 ML IV ONE (22:50)
[2019-03-18] MEDS ORDERED: METHYLPREDNISOLONE SOD SUCC 125 MG/2 ML VIAL IV STA (22:50)
[2019-03-18] MEDS ORDERED: MAGNESIUM 2 G PREMIX 50 ML IV ONE (23:00)
[2019-03-18] MEDS ORDERED: LEVOFLOXACIN 750MG PREMIX 150 ML IV ONE (23:00)
[2019-03-18] MEDS ORDERED: IPRATROPIUM/ALBUTEROL 0.5-3(2.5)MG/3ML NEB HHN ONE (23:00)
[2019-03-18 23:23] LABS: BG BASE EXCESS 2.3 mmol/L (-2.0-2.0); BG CARBOXYHEMOGLOBIN 1.2 % (0.5-1.5); BG DEOXYHEMOGLOBIN 4.3 % (0.0-5.0); BG FRACTION INSPIRED OXYGEN 21; BG HCO3 ACT 26.9 mmol/L (22.0-26.0); BG METHEMOGLOBIN 0.2 % (0.0-1.5); BG OXYGEN SATURATION 95.6 % (92.0-98.5); BG OXYHEMOGLOBIN 94.3 % (94.0-97.0); BG PCO2 41.7 mmHg (35.0-45.0); BG PH 7.427 (7.350-7.450); BG SAMPLE SITE RIGHT RADIAL; BG TOTAL HEMOGLOBIN 14.1 g/dL (12.0-18.0); BG VENT MODE ROOM AIR
[2019-03-18 23:46] LABS: BASOPHILS % 0.4 % (0.0-2.0); EOSINOPHILS % 3.7 % (0.0-5.0); HEMATOCRIT. 41.4 % (42.0-52.0); LYMPHOCYTES % 17.6 % (20.0-50.0); MEAN CORPUSCULAR HEMOGLOBIN 28.7 pg (28.0-32.0); MEAN CORPUSCULAR VOLUME 84.9 fL (80.0-94.0); MEAN PLATELET VOLUME 8.1 fl (7.4-10.4); MONOCYTES % 9.8 % (2.0-8.0); NEUTROPHILS % 68.5 % (40.0-76.0); PLATELET 220 x1000/uL (130-400); RED BLOOD CELL COUNT 4.87 mill/uL (4.7-6.1); RED CELL DISTRIBUTION WIDTH 14.7 % (11.6-14.6)
[2019-03-19 00:03] LABS: CHLORIDE 106 mEq/L (98-107)
[2019-03-19 00:07] LABS: ETHANOL BLOOD < 10 mg/dL
[2019-03-19] MEDS ORDERED: DIPHENHYDRAMINE 50MG/ML VIAL IV ONE (00:15)
[2019-03-19 01:17] LABS: CLARITY URINE CLEAR (CLEAR); COLOR URINE YELLOW (YELLOW); KETONES URINE NEGATIVE (NEGATIVE); LEUKOCYTE ESTERASE URINE NEGATIVE (NEGATIVE); NITRITE URINE NEGATIVE (NEGATIVE); OCCULT BLOOD URINE NEGATIVE (NEGATIVE); PH URINE 5.5 (4.5-8.0); PROTEIN URINE NEGATIVE (NEGATIVE); UROBILINOGEN URINE 0.2 E.U./dL (0.2-1.0)
[2019-03-19 01:52] LABS: *AMPHETAMINES SCREEN URINE NEGATIVE (NEGATIVE); *BARBITURATES SCREEN URINE NEGATIVE (NEGATIVE); *BENZODIAZEPINES SCREEN URINE NEGATIVE (NEGATIVE); *COCAINE SCREEN URINE PRESUMTIVE POSITIVE (NEGATIVE); METHADONE URINE SCREEN NEGATIVE (NEGATIVE); OPIATES URINE SCREEN PRESUMTIVE POSITIVE (NEGATIVE); PHENCYCLIDINE URINE SCREEN NEGATIVE (NEGATIVE)
[2019-03-19 01:53] LABS: CANNABINOID URINE SCREEN NEGATIVE (NEGATIVE)
[2019-03-19] MEDS ORDERED: IPRATROPIUM/ALBUTEROL 0.5-3(2.5)MG/3ML NEB HHN PRN (08:15)
[2019-03-19] MEDS ORDERED: ONDANSETRON HCL 4MG/2ML INJ IV PRN (08:15)
[2019-03-19] MEDS ORDERED: LORAZEPAM 2MG/ML CPJ IV PRN (08:15)
[2019-03-19] MEDS ORDERED: MORPHINE SULFATE 2 MG/ML CPJ (NOT FOR IM USE) IV PRN (08:15)
[2019-03-19] MEDS ORDERED: ACETAMINOPHEN 325MG TABLET PO PRN (08:15)
[2019-03-19] MEDS ORDERED: GUAIFENESIN 200MG/10ML SUGAR FREE UDC PO PRN (08:15)
[2019-03-19] MEDS ORDERED: DOCUSATE SODIUM 100MG CAPSULE PO PRN (08:15)
[2019-03-19] MEDS ORDERED: CLONIDINE 0.1MG TABLET PO PRN (08:15)
[2019-03-19] MEDS: AMLODIPINE 10MG TABLET PO SCH (10:04)
[2019-03-19] MEDS: ASPIRIN 81MG EC TABLET PO SCH (10:04)
[2019-03-19] MEDS: ENOXAPARIN 40MG/0.4ML SYR SUBCUT SCH (11:34)
[2019-03-19] MEDS ORDERED: IPRATROPIUM/ALBUTEROL 0.5-3(2.5)MG/3ML NEB HHN SCH (12:00)
[2019-03-19] MEDS ORDERED: METHYLPREDNISOLONE SOD SUCC 125 MG/2 ML VIAL IV SCH (12:00)
[2019-03-19 13:10] VITALS: BP 133/60
[2019-03-19 13:23] VITALS: BP 133/60
[2019-03-19 16:00] VITALS: BP 156/71
[2019-03-19] MEDS ORDERED: LEVOFLOXACIN 500MG PREMIX 100 ML IV SCH ×3 (18:00→23:00)
[2019-03-19 20:18] VITALS: BP 146/79
[2019-03-19] MEDS: HYDROCODONE/ACETAMINOPHEN 5/325MG TABLET PO PRN (21:23)
[2019-03-19] MEDS: METHYLPREDNISOLONE SOD SUCC 125 MG/2 ML VIAL IV SCH (21:24)
[2019-03-20 00:34] VITALS: BP 154/77
[2019-03-20] MEDS: METHYLPREDNISOLONE SOD SUCC 125 MG/2 ML VIAL IV SCH ×2 (03:30→08:31)
[2019-03-20 04:00] VITALS: BP 143/78
[2019-03-20] MEDS: HYDROCODONE/ACETAMINOPHEN 5/325MG TABLET PO PRN ×2 (04:11→08:32)
[2019-03-20 07:08] LABS: HEMOGLOBIN. 13.6 g/dL (14.0-18.0); MEAN CORPUSCULAR HEMOGLOBIN 28.2 pg (28.0-32.0); MEAN CORPUSCULAR VOLUME 84.9 fL (80.0-94.0); MEAN PLATELET VOLUME 8.1 fl (7.4-10.4); PLATELET 262 x1000/uL (130-400); RED BLOOD CELL COUNT 4.83 mill/uL (4.7-6.1); RED CELL DISTRIBUTION WIDTH 14.5 % (11.6-14.6)
[2019-03-20 07:35] LABS: CHLORIDE 108 mEq/L (98-107)
[2019-03-20 08:00] VITALS: BP 120/83
[2019-03-20] MEDS: AMLODIPINE 10MG TABLET PO SCH (08:31)
[2019-03-20] MEDS: ENOXAPARIN 40MG/0.4ML SYR SUBCUT SCH (08:31)
[2019-03-20 08:32] VITALS: BP 120/83
[2019-03-20] MEDS: ASPIRIN 81MG EC TABLET PO SCH (08:32)
[2019-03-20 14:37] LABS: PLATELET ESTIMATE NORMAL
== END 2019-03-20 10:22 | disposition left against medical advice (07) | DRG 190 ==
LOC: ER 18:34 → 6WST 03-19 00:19 → EDBEDREQTM 03-19 00:33 → EDBEDREQ 03-19 00:33 → ENRESERV 03-19 12:14 → 6EST 03-20 03:10
PROVIDERS: ADMIT Hospitalist; ATTEND Hospitalist
DX: J44.1 Chronic obstructive pulmonary disease with (acute) exacerbation (principal); J18.9 Pneumonia, unspecified organism; J44.0 Chronic obstructive pulmonary disease with (acute) lower respiratory infection; I10 Essential (primary) hypertension; G62.9 Polyneuropathy, unspecified; F32.9 Major depressive disorder, single episode, unspecified; F17.210 Nicotine dependence, cigarettes, uncomplicated; M19.90 Unspecified osteoarthritis, unspecified site; Z59.0 Homelessness; Z82.49 Family history of ischemic heart disease and other diseases of the circulatory system; Z88.0 Allergy status to penicillin; Z79.52 Long term (current) use of systemic steroids; Z71.6 Tobacco abuse counseling; Z86.73 Personal history of transient ischemic attack (TIA), and cerebral infarction without residual deficits
CPT/HCPCS: 36415; 36600; 71045; 80053; 80305; 80320; 81003; 82375; 82805; 83605; 83880; 84484; 85025; 93005; 93970; 94640; 99285; J1200; J1650; J1956; J2060; J2270; J2405; J2930; J3475; J7030; G0480

== ENCOUNTER 2019-03-21 01:37 | Emergency (ER) | payer MEDICARE, MEDICAID ==
[~2019-03-21] VITALS: Ht 170.2 cm; Wt 87.0 kg
[2019-03-21] MEDS ORDERED: IPRATROPIUM BROMIDE (0.02%) 0.5MG/2.5ML NEB HHN STA (02:14)
[2019-03-21] MEDS ORDERED: ALBUTEROL (0.083%) 2.5MG/3ML NEB HHN STA (02:14)
[2019-03-21] MEDS ORDERED: METHYLPREDNISOLONE SOD SUCC 125 MG/2 ML VIAL IV STA (02:14)
[2019-03-21 03:38] LABS: BASOPHILS % 0.2 % (0.0-2.0); EOSINOPHILS % 0.8 % (0.0-5.0); HEMATOCRIT. 39.8 % (42.0-52.0); HEMOGLOBIN. 13.4 g/dL (14.0-18.0); LYMPHOCYTES % 15.8 % (20.0-50.0); MEAN CORPUSCULAR HEMOGLOBIN 28.8 pg (28.0-32.0); MEAN CORPUSCULAR VOLUME 85.3 fL (80.0-94.0); MEAN PLATELET VOLUME 7.8 fl (7.4-10.4); MONOCYTES % 5.5 % (2.0-8.0); NEUTROPHILS % 77.7 % (40.0-76.0); PLATELET 249 x1000/uL (130-400); RED BLOOD CELL COUNT 4.67 mill/uL (4.7-6.1); RED CELL DISTRIBUTION WIDTH 14.5 % (11.6-14.6)
[2019-03-21 03:47] LABS: CHLORIDE 106 mEq/L (98-107)
[2019-03-21] MEDS ORDERED: ACETAMINOPHEN 500MG TABLET PO ONE (04:15)
[2019-03-21] MEDS ORDERED: ACETAMINOPHEN 325MG TABLET PO PRN (08:30)
[2019-03-21] MEDS ORDERED: HYDROCODONE/ACETAMINOPHEN 10/325MG TABLET PO PRN (08:30)
[2019-03-21] MEDS ORDERED: MAGNESIUM/ALUMINUM HYDROXIDE/SIMETHICONE 30ML UDC PO PRN (08:30)
[2019-03-21] MEDS ORDERED: GUAIFENESIN 200MG/10ML SUGAR FREE UDC PO PRN (08:30)
[2019-03-21] MEDS ORDERED: CLONIDINE 0.1MG TABLET PO PRN (08:30)
[2019-03-21] MEDS ORDERED: IPRATROPIUM/ALBUTEROL 0.5-3(2.5)MG/3ML NEB NEB PRN (08:30)
[2019-03-21] MEDS ORDERED: IPRATROPIUM/ALBUTEROL 0.5-3(2.5)MG/3ML NEB NEB SCH (08:30)
[2019-03-21] MEDS ORDERED: ONDANSETRON HCL 4MG/2ML INJ IV PRN (08:30)
[2019-03-21] MEDS ORDERED: DOCUSATE SODIUM 100MG CAPSULE PO PRN (11:00)
[2019-03-21] MEDS ORDERED: AMLODIPINE 10MG TABLET PO SCH (11:30)
[2019-03-21] MEDS ORDERED: METHYLPREDNISOLONE SOD SUCC 125 MG/2 ML VIAL IV SCH (11:30)
[2019-03-21] MEDS ORDERED: ASPIRIN 81MG EC TABLET PO SCH (11:30)
[2019-03-21] MEDS ORDERED: ENOXAPARIN 40MG/0.4ML SYR SUBCUT SCH (11:30)
[2019-03-21 13:00] VITALS: BP 128/60
[2019-03-21] MEDS ORDERED: LEVOFLOXACIN 500MG PREMIX 100 ML IV ONE (13:45)
== END 2019-03-21 14:39 | disposition left against medical advice (07) ==
LOC: ER 01:37 → EDBEDREQTM 04:29 → EDBEDREQ 04:29 → ER 14:39 → CANBEDREQ 16:44
DX: J44.1 Chronic obstructive pulmonary disease with (acute) exacerbation (principal); J18.9 Pneumonia, unspecified organism; G89.4 Chronic pain syndrome; I10 Essential (primary) hypertension; Z88.0 Allergy status to penicillin; Z79.899 Other long term (current) drug therapy
CPT/HCPCS: 36415; 71045; 80053; 83880; 84484; 85025; 93005; 94640; 99285; J1650; J2930

== ENCOUNTER 2019-03-22 01:37 | Emergency (ER) | payer MEDICARE, MEDICAID, OTHER ==
[~2019-03-22] VITALS: Ht 170.2 cm; Wt 86.0 kg
[2019-03-22] MEDS ORDERED: IPRATROPIUM/ALBUTEROL 0.5-3(2.5)MG/3ML NEB HHN ONE (04:00)
[2019-03-22 06:15] VITALS: BP 132/68
== END 2019-03-22 10:35 | disposition left against medical advice (07) ==
LOC: ER 01:37 → EDBEDREQTM 05:26 → EDBEDREQ 05:26 → ER 10:35 → CANBEDREQ 13:08
DX: J44.9 Chronic obstructive pulmonary disease, unspecified (principal); J18.9 Pneumonia, unspecified organism; I10 Essential (primary) hypertension; F17.200 Nicotine dependence, unspecified, uncomplicated; Z88.0 Allergy status to penicillin
CPT/HCPCS: 94640; 99285

== ENCOUNTER 2019-04-03 22:20 | Emergency (ER) | payer MEDICARE, MEDICAID ==
[~2019-04-03] VITALS: Ht 170.2 cm; Wt 86.0 kg
[2019-04-03] MEDS ORDERED: IPRATROPIUM BROMIDE (0.02%) 0.5MG/2.5ML NEB HHN STA (22:44)
[2019-04-03] MEDS ORDERED: SODIUM CHLORIDE 0.9% 1,000 ML IV ONE (22:44)
[2019-04-03] MEDS ORDERED: METHYLPREDNISOLONE SOD SUCC 125 MG/2 ML VIAL IV STA (22:44)
[2019-04-03] MEDS ORDERED: HYDROCODONE/ACETAMINOPHEN 5/325MG TABLET PO ONE (23:15)
[2019-04-03] MEDS: ALBUTEROL (0.083%) 2.5MG/3ML NEB HHN SCH ×2 (23:15→23:45)
[2019-04-03 23:23] LABS: BASOPHILS % 0.3 % (0.0-2.0); EOSINOPHILS % 1.6 % (0.0-5.0); HEMATOCRIT. 43.4 % (42.0-52.0); HEMOGLOBIN. 14.7 g/dL (14.0-18.0); LYMPHOCYTES % 18.8 % (20.0-50.0); MEAN CORPUSCULAR HEMOGLOBIN 28.8 pg (28.0-32.0); MEAN CORPUSCULAR VOLUME 85.2 fL (80.0-94.0); MEAN PLATELET VOLUME 7.6 fl (7.4-10.4); MONOCYTES % 7.2 % (2.0-8.0); NEUTROPHILS % 72.1 % (40.0-76.0); PLATELET 204 x1000/uL (130-400); RED CELL DISTRIBUTION WIDTH 14.7 % (11.6-14.6)
[2019-04-03 23:27] LABS: CHLORIDE 106 mEq/L (98-107)
[2019-04-03 23:32] LABS: ETHANOL BLOOD < 10 mg/dL
[2019-04-04] MEDS: ALBUTEROL (0.083%) 2.5MG/3ML NEB HHN SCH (00:15)
[2019-04-04 00:57] LABS: BG BASE EXCESS -2.6 mmol/L (-2.0-2.0); BG CARBOXYHEMOGLOBIN 1.2 % (0.5-1.5); BG DEOXYHEMOGLOBIN 8.1 % (0.0-5.0); BG FRACTION INSPIRED OXYGEN 21; BG HCO3 ACT 21.8 mmol/L (22.0-26.0); BG METHEMOGLOBIN 0.2 % (0.0-1.5); BG OXYGEN SATURATION 91.8 % (92.0-98.5); BG OXYHEMOGLOBIN 90.5 % (94.0-97.0); BG PCO2 36.7 mmHg (35.0-45.0); BG PH 7.392 (7.350-7.450); BG PO2 62.1 mmHg (75.0-100.0); BG SAMPLE SITE RIGHT RADIAL; BG TOTAL HEMOGLOBIN 14.5 g/dL (12.0-18.0); BG VENT MODE ROOM AIR
[2019-04-04 01:41] VITALS: BP 120/59
== END 2019-04-04 04:41 | disposition home or self-care (01) ==
LOC: ER 22:20 → CANBEDREQ 04-04 16:39
DX: J44.1 Chronic obstructive pulmonary disease with (acute) exacerbation (principal); J45.901 Unspecified asthma with (acute) exacerbation; Z88.0 Allergy status to penicillin; Z79.899 Other long term (current) drug therapy; I10 Essential (primary) hypertension; F17.290 Nicotine dependence, other tobacco product, uncomplicated
CPT/HCPCS: 36415; 36600; 71045; 80053; 80320; 82375; 82805; 83605; 83880; 84484; 85025; 87804; 93005; 94640; 99285; 99406; J2930; J7030; G0480

== ENCOUNTER 2019-08-24 20:46 | Inpatient (IN) | payer MEDICARE, MEDICAID, OTHER ==
[~2019-08-24] VITALS: Ht 170.2 cm; Wt 77.7 kg
[2019-08-24] MEDS ORDERED: IPRATROPIUM BROMIDE (0.02%) 0.5MG/2.5ML NEB HHN STA (21:17)
[2019-08-24] MEDS ORDERED: ALBUTEROL (0.083%) 2.5MG/3ML NEB HHN STA (21:17)
[2019-08-24] MEDS ORDERED: METHYLPREDNISOLONE SOD SUCC 125 MG/2 ML VIAL IV STA (21:17)
[2019-08-24] MEDS ORDERED: HYDROCODONE/ACETAMINOPHEN 10/325MG TABLET PO ONE (22:00)
[2019-08-24 22:37] LABS: BASOPHILS % 0.6 % (0.0-2.0); HEMATOCRIT. 43.2 % (42.0-52.0); HEMOGLOBIN. 14.3 g/dL (14.0-18.0); LYMPHOCYTES % 31.1 % (20.0-50.0); MEAN CORPUSCULAR HEMOGLOBIN 27.7 pg (28.0-32.0); MEAN CORPUSCULAR VOLUME 83.4 fL (80.0-94.0); MEAN PLATELET VOLUME 8.3 fl (7.4-10.4); MONOCYTES % 8.2 % (2.0-8.0); NEUTROPHILS % 54.1 % (40.0-76.0); PLATELET 208 x1000/uL (130-400); RED BLOOD CELL COUNT 5.18 mill/uL (4.7-6.1)
[2019-08-24 22:39] LABS: CHLORIDE 108 mEq/L (98-107)
[2019-08-24 22:43] LABS: INR 0.9; PROTHROMBIN TIME 9.9 sec (9.6-11.0)
[2019-08-25 00:48] LABS: CLARITY URINE CLEAR (CLEAR); COLOR URINE YELLOW (YELLOW); KETONES URINE NEGATIVE (NEGATIVE); LEUKOCYTE ESTERASE URINE NEGATIVE (NEGATIVE); NITRITE URINE NEGATIVE (NEGATIVE); OCCULT BLOOD URINE NEGATIVE (NEGATIVE); PROTEIN URINE NEGATIVE (NEGATIVE); SPECIFIC GRAVITY URINE 1.028 (1.005-1.030)
[2019-08-25 03:53] VITALS: BP 146/85
[2019-08-25 04:00] VITALS: BP 146/85
[2019-08-25] MEDS ORDERED: HYDROCODONE/ACETAMINOPHEN 5/325MG TABLET PO PRN (04:15)
[2019-08-25] MEDS ORDERED: CLONIDINE 0.1MG TABLET PO PRN (04:15)
[2019-08-25] MEDS ORDERED: PNEUMOCOCCAL 23-VAL P-SAC VAC 0.5 ML IM ONE (04:15)
[2019-08-25] MEDS ORDERED: DOCUSATE SODIUM 100MG CAPSULE PO PRN (04:15)
[2019-08-25] MEDS ORDERED: GUAIFENESIN 200MG/10ML SUGAR FREE UDC PO PRN (04:15)
[2019-08-25] MEDS ORDERED: ACETAMINOPHEN 325MG TABLET PO PRN (04:15)
[2019-08-25] MEDS ORDERED: LORAZEPAM 2MG/ML CPJ IV PRN (04:15)
[2019-08-25] MEDS ORDERED: ONDANSETRON HCL 4MG/2ML INJ IV PRN (04:15)
[2019-08-25] MEDS ORDERED: MAGNESIUM/ALUMINUM HYDROXIDE/SIMETHICONE 30ML UDC PO PRN (04:15)
[2019-08-25] MEDS ORDERED: IPRATROPIUM/ALBUTEROL 0.5-3(2.5)MG/3ML NEB HHN PRN (04:15)
[2019-08-25] MEDS ORDERED: BECL10.62 INH (04:54)
[2019-08-25] MEDS: METHYLPREDNISOLONE SOD SUCC 125 MG/2 ML VIAL IV SCH ×4 (05:00→22:42)
[2019-08-25] MEDS ORDERED: LEVOFLOXACIN 500MG PREMIX 100 ML IV SCH (06:00)
[2019-08-25 08:00] VITALS: BP 156/106
[2019-08-25] MEDS: ASPIRIN 81MG EC TABLET PO SCH (09:21)
[2019-08-25] MEDS: AMLODIPINE 10MG TABLET PO SCH (09:21)
[2019-08-25] MEDS: HYDROCODONE/ACETAMINOPHEN 10/325MG TABLET PO PRN ×3 (09:21→22:42)
[2019-08-25 12:00] VITALS: BP 148/89
[2019-08-25] MEDS: PANTOPRAZOLE 40MG DR TABLET PO SCH (12:21)
[2019-08-25] MEDS: LOSARTAN POTASSIUM 50 MG TABLET PO SCH (12:21)
[2019-08-25] MEDS: NICOTINE 21MG PATCH TD SCH (12:21)
[2019-08-25] MEDS: GABAPENTIN 400MG CAPSULE PO SCH ×2 (13:00→22:42)
[2019-08-25 16:00] VITALS: BP 144/60
[2019-08-25] MEDS: CELECOXIB 100MG CAPSULE PO SCH (17:37)
[2019-08-25] MEDS: ENOXAPARIN 40MG/0.4ML SYR SUBCUT SCH (17:38)
[2019-08-25 19:51] LABS: *AMPHETAMINES SCREEN URINE NEGATIVE (NEGATIVE); *BARBITURATES SCREEN URINE NEGATIVE (NEGATIVE); *BENZODIAZEPINES SCREEN URINE NEGATIVE (NEGATIVE); *COCAINE SCREEN URINE PRESUMTIVE POSITIVE (NEGATIVE)
[2019-08-25 19:52] LABS: CANNABINOID URINE SCREEN NEGATIVE (NEGATIVE); METHADONE URINE SCREEN NEGATIVE (NEGATIVE); OPIATES URINE SCREEN PRESUMTIVE POSITIVE (NEGATIVE); PHENCYCLIDINE URINE SCREEN NEGATIVE (NEGATIVE)
[2019-08-25 20:00] VITALS: BP 166/83
[2019-08-25] MEDS: IPRATROPIUM/ALBUTEROL 0.5-3(2.5)MG/3ML NEB HHN SCH (21:34)
[2019-08-26] VITALS: BP 142/80
[2019-08-26] MEDS: IPRATROPIUM/ALBUTEROL 0.5-3(2.5)MG/3ML NEB HHN SCH ×4 (03:12→20:51)
[2019-08-26 04:00] VITALS: BP 131/72
[2019-08-26] MEDS: GABAPENTIN 400MG CAPSULE PO SCH ×3 (05:22→21:09)
[2019-08-26] MEDS: METHYLPREDNISOLONE SOD SUCC 125 MG/2 ML VIAL IV SCH (05:22)
[2019-08-26] MEDS: HYDROCODONE/ACETAMINOPHEN 10/325MG TABLET PO PRN ×3 (05:23→21:10)
[2019-08-26] MEDS: PANTOPRAZOLE 40MG DR TABLET PO SCH (05:23)
[2019-08-26 06:25] LABS: HEMATOCRIT. 43.1 % (42.0-52.0); HEMOGLOBIN. 14.1 g/dL (14.0-18.0); MEAN CORPUSCULAR HEMOGLOBIN 27.2 pg (28.0-32.0); MEAN CORPUSCULAR VOLUME 83.5 fL (80.0-94.0); MEAN PLATELET VOLUME 8.4 fl (7.4-10.4); PLATELET 240 x1000/uL (130-400); RED BLOOD CELL COUNT 5.17 mill/uL (4.7-6.1); RED CELL DISTRIBUTION WIDTH 17.1 % (11.6-14.6)
[2019-08-26 06:44] LABS: CHLORIDE 105 mEq/L (98-107)
[2019-08-26 08:00] VITALS: BP 158/96
[2019-08-26] MEDS: LOSARTAN POTASSIUM 50 MG TABLET PO SCH (09:02)
[2019-08-26] MEDS: AMLODIPINE 10MG TABLET PO SCH (09:02)
[2019-08-26] MEDS: NICOTINE 21MG PATCH TD SCH (09:02)
[2019-08-26] MEDS: ASPIRIN 81MG EC TABLET PO SCH (09:02)
[2019-08-26] MEDS: CELECOXIB 100MG CAPSULE PO SCH ×2 (09:02→17:41)
[2019-08-26] MEDS: METHYLPREDNISOLONE SOD SUCC 40 MG/ML VIAL IV SCH ×2 (10:33→21:09)
[2019-08-26 12:00] VITALS: BP 128/85
[2019-08-26 14:30] LABS: PLATELET ESTIMATE NORMAL
[2019-08-26 16:00] VITALS: BP 127/71
[2019-08-26] MEDS: ENOXAPARIN 40MG/0.4ML SYR SUBCUT SCH (17:42)
[2019-08-26 20:00] VITALS: BP 148/81
[2019-08-27] VITALS (7 sets, daily range): BP systolic 127–149; BP diastolic 70–90
[2019-08-27] MEDS: IPRATROPIUM/ALBUTEROL 0.5-3(2.5)MG/3ML NEB HHN SCH ×3 (02:35→09:02)
[2019-08-27] MEDS: HYDROCODONE/ACETAMINOPHEN 10/325MG TABLET PO PRN ×3 (02:49→20:05)
[2019-08-27] MEDS: PANTOPRAZOLE 40MG DR TABLET PO SCH (06:07)
[2019-08-27] MEDS: GABAPENTIN 400MG CAPSULE PO SCH ×3 (06:07→22:01)
[2019-08-27] MEDS: ASPIRIN 81MG EC TABLET PO SCH (09:22)
[2019-08-27] MEDS: CELECOXIB 100MG CAPSULE PO SCH ×2 (09:22→16:14)
[2019-08-27] MEDS: LOSARTAN POTASSIUM 50 MG TABLET PO SCH (09:22)
[2019-08-27] MEDS: AMLODIPINE 10MG TABLET PO SCH (09:22)
[2019-08-27] MEDS: NICOTINE 21MG PATCH TD SCH (09:22)
[2019-08-27] MEDS: METHYLPREDNISOLONE SOD SUCC 40 MG/ML VIAL IV SCH (09:23)
[2019-08-27] MEDS: ENOXAPARIN 40MG/0.4ML SYR SUBCUT SCH (16:14)
[2019-08-27] MEDS ORDERED: ZOLPIDEM TARTRATE 5MG TABLET PO PRN (21:00)
[2019-08-28] VITALS: BP 139/70
[2019-08-28] MEDS: HYDROCODONE/ACETAMINOPHEN 10/325MG TABLET PO PRN ×2 (02:05→09:59)
[2019-08-28 04:00] VITALS: BP 145/75
[2019-08-28] MEDS: GABAPENTIN 400MG CAPSULE PO SCH ×2 (06:36→15:44)
[2019-08-28 08:00] VITALS: BP 136/112
[2019-08-28] MEDS: NICOTINE 21MG PATCH TD SCH (08:33)
[2019-08-28] MEDS: LOSARTAN POTASSIUM 50 MG TABLET PO SCH (08:34)
[2019-08-28] MEDS: ASPIRIN 81MG EC TABLET PO SCH (08:34)
[2019-08-28] MEDS: AMLODIPINE 10MG TABLET PO SCH (08:34)
[2019-08-28] MEDS: CELECOXIB 100MG CAPSULE PO SCH (08:34)
[2019-08-28] MEDS ORDERED: FAMOTIDINE 20MG TABLET PO SCH (09:00)
[2019-08-28] MEDS ORDERED: PREDNISONE 20MG TABLET PO SCH (09:00)
[2019-08-28 12:00] VITALS: BP 153/82
[2019-08-28] MEDS ORDERED: LOSA50TA3 MT (12:45)
[2019-08-28] MEDS ORDERED: AMLO10TA4 MT (12:45)
[2019-08-28] MEDS ORDERED: CELE100C MT (12:45)
[2019-08-28] MEDS ORDERED: TIOT18CA3 INH (12:45)
[2019-08-28] MEDS ORDERED: PROT40 MT (12:45)
[2019-08-28] MEDS ORDERED: BECL10.62 INH (12:45)
[2019-08-28] MEDS ORDERED: HYDR-3280 MT (12:45)
[2019-08-28] MEDS ORDERED: GABA800T MT (12:45)
[2019-08-28 12:58] VITALS: BP 153/82
[2019-08-28] MEDS ORDERED: HYDR-4009 MT (13:23)
[2019-08-28] MEDS: IPRATROPIUM/ALBUTEROL 0.5-3(2.5)MG/3ML NEB HHN SCH (15:42)
[2019-08-30 07:45] VITALS: BP 113/54
[2019-08-30 11:53] VITALS: BP 144/60
== END 2019-08-28 16:20 | disposition home or self-care (01) | DRG 190 ==
LOC: ER 20:46 → ENRESERV 23:59 → MICUSO 23:59 → 5WST 08-25 02:50
PROVIDERS: ADMIT Hospitalist; ATTEND Hospitalist
DX: J44.1 Chronic obstructive pulmonary disease with (acute) exacerbation (principal); J96.00 Acute respiratory failure, unspecified whether with hypoxia or hypercapnia; I10 Essential (primary) hypertension; G62.9 Polyneuropathy, unspecified; F32.9 Major depressive disorder, single episode, unspecified; F17.210 Nicotine dependence, cigarettes, uncomplicated; F14.90 Cocaine use, unspecified, uncomplicated; F11.90 Opioid use, unspecified, uncomplicated; G89.4 Chronic pain syndrome; M19.90 Unspecified osteoarthritis, unspecified site; Z86.73 Personal history of transient ischemic attack (TIA), and cerebral infarction without residual deficits; Z59.0 Homelessness; Z71.6 Tobacco abuse counseling; Z88.0 Allergy status to penicillin; Z79.899 Other long term (current) drug therapy
CPT/HCPCS: 36415; 71045; 80053; 80305; 81003; 84484; 85025; 93005; 93970; 94640; 99285; J1650; J1956; J2920; J2930; J7512

== ENCOUNTER 2019-09-01 00:44 | Inpatient (IN) | payer MEDICARE, OTHER, MEDICAID ==
[~2019-09-01] VITALS: Ht 172.7 cm; Wt 89.8 kg
[~2019-09-01 00:44] MED LIST changes: +AMLO10TA4 MT; +BECL10.62 INH; +CELE100C MT; +GABA800T MT; +HYDR-3280 MT; +HYDR-4009 MT; +LOSA50TA3 MT; +PROT40 MT; +TIOT18CA3 INH
[2019-09-01] MEDS ORDERED: PREDNISONE 20MG TABLET PO STA (01:49)
[2019-09-01] MEDS ORDERED: IPRATROPIUM BROMIDE (0.02%) 0.5MG/2.5ML NEB HHN STA (01:49)
[2019-09-01] MEDS ORDERED: VANCOMYCIN 1 G PREMIX 200 ML IV SCH (02:00)
[2019-09-01] MEDS ORDERED: ALBUTEROL (0.083%) 2.5MG/3ML NEB HHN SCH (02:00)
[2019-09-01] MEDS ORDERED: MORPHINE SULFATE 4 MG/ML CPJ (NOT FOR IM USE) IV ONE (02:15)
[2019-09-01 02:22] LABS: HEMATOCRIT. 45.6 % (42.0-52.0); HEMOGLOBIN. 15.4 g/dL (14.0-18.0); MEAN CORPUSCULAR HEMOGLOBIN 28.1 pg (28.0-32.0); MEAN CORPUSCULAR VOLUME 83.4 fL (80.0-94.0); MEAN PLATELET VOLUME 8.3 fl (7.4-10.4); PLATELET 195 x1000/uL (130-400); RED BLOOD CELL COUNT 5.47 mill/uL (4.7-6.1); RED CELL DISTRIBUTION WIDTH 17.2 % (11.6-14.6)
[2019-09-01 02:27] LABS: CHLORIDE 105 mEq/L (98-107)
[2019-09-01 02:34] LABS: INR 0.9
[2019-09-01] MEDS ORDERED: LIDOCAINE HCL/PF 1% 10 MG/ML 30ML VIAL INFIL ONE (03:00)
[2019-09-01] MEDS ORDERED: LIDOCAINE HCL/PF 1% 10 MG/ML 5ML VIAL ONE (03:54)
[2019-09-01 06:21] LABS: PLATELET ESTIMATE NORMAL
[2019-09-01] MEDS ORDERED: METHYLPREDNISOLONE SOD SUCC 125 MG/2 ML VIAL IV SCH (08:30)
[2019-09-01] MEDS ORDERED: DOCUSATE SODIUM 100MG CAPSULE PO PRN ×2 (08:30→09:15)
[2019-09-01] MEDS ORDERED: MAGNESIUM/ALUMINUM HYDROXIDE/SIMETHICONE 30ML UDC PO PRN ×2 (08:30→09:15)
[2019-09-01] MEDS ORDERED: GUAIFENESIN 200MG/10ML SUGAR FREE UDC PO PRN ×2 (08:30→09:15)
[2019-09-01] MEDS ORDERED: ONDANSETRON HCL 4MG/2ML INJ IV PRN ×2 (08:30→09:15)
[2019-09-01] MEDS ORDERED: LEVOFLOXACIN 500MG PREMIX 100 ML IV SCH (08:30)
[2019-09-01] MEDS ORDERED: ENOXAPARIN 40MG/0.4ML SYR SUBCUT SCH (08:30)
[2019-09-01] MEDS ORDERED: CLONIDINE 0.1MG TABLET PO PRN ×2 (08:30→09:15)
[2019-09-01] MEDS ORDERED: ACETAMINOPHEN 325MG TABLET PO PRN ×2 (08:30→09:15)
[2019-09-01] MEDS ORDERED: HYDROCODONE/ACETAMINOPHEN 10/325MG TABLET PO PRN (08:30)
[2019-09-01] MEDS ORDERED: AMLODIPINE 10MG TABLET PO SCH (09:00)
[2019-09-01 10:30] VITALS: BP 141/92
[2019-09-01] MEDS: METHYLPREDNISOLONE SOD SUCC 125 MG/2 ML VIAL IV SCH ×2 (12:05→18:00)
[2019-09-01] MEDS: ENOXAPARIN 40MG/0.4ML SYR SUBCUT SCH (12:06)
[2019-09-01] MEDS: NICOTINE 21MG PATCH TD SCH (12:07)
[2019-09-01] MEDS: LOSARTAN POTASSIUM 50 MG TABLET PO SCH (12:08)
[2019-09-01] MEDS: PANTOPRAZOLE 40MG DR TABLET PO SCH (12:08)
[2019-09-01] MEDS: AMLODIPINE 10MG TABLET PO SCH (12:08)
[2019-09-01] MEDS: CELECOXIB 100MG CAPSULE PO SCH ×2 (12:09→21:06)
[2019-09-01] MEDS: LEVOFLOXACIN 500MG PREMIX 100 ML IV SCH (12:30)
[2019-09-01] MEDS: GABAPENTIN 300MG CAPSULE PO SCH ×2 (14:36→21:06)
[2019-09-01] MEDS: HYDROCODONE/ACETAMINOPHEN 10/325MG TABLET PO PRN (14:38)
[2019-09-01 15:48] VITALS: BP 105/54
[2019-09-01 20:40] VITALS: BP 102/68
[2019-09-02] VITALS: BP 108/69
[2019-09-02] MEDS: METHYLPREDNISOLONE SOD SUCC 125 MG/2 ML VIAL IV SCH ×3 (00:17→12:26)
[2019-09-02] MEDS: HYDROCODONE/ACETAMINOPHEN 10/325MG TABLET PO PRN ×5 (00:17→23:54)
[2019-09-02] MEDS: ZOLPIDEM TARTRATE 5MG TABLET PO PRN (02:08)
[2019-09-02 04:30] VITALS: BP 140/78
[2019-09-02] MEDS: GABAPENTIN 300MG CAPSULE PO SCH ×3 (06:03→21:01)
[2019-09-02] MEDS: PANTOPRAZOLE 40MG DR TABLET PO SCH (06:21)
[2019-09-02 08:00] VITALS: BP 135/86
[2019-09-02] MEDS: NICOTINE 21MG PATCH TD SCH (08:15)
[2019-09-02] MEDS: LEVOFLOXACIN 500MG PREMIX 100 ML IV SCH (08:15)
[2019-09-02] MEDS: CELECOXIB 100MG CAPSULE PO SCH ×2 (08:16→21:01)
[2019-09-02] MEDS: ENOXAPARIN 40MG/0.4ML SYR SUBCUT SCH (08:16)
[2019-09-02] MEDS: AMLODIPINE 10MG TABLET PO SCH (08:16)
[2019-09-02] MEDS: LOSARTAN POTASSIUM 50 MG TABLET PO SCH (08:16)
[2019-09-02 10:03] LABS: BG BASE EXCESS -3.5 mmol/L (-2.0-2.0); BG CARBOXYHEMOGLOBIN 1.2 % (0.5-1.5); BG DEOXYHEMOGLOBIN 5.3 % (0.0-5.0); BG FRACTION INSPIRED OXYGEN 21; BG HCO3 ACT 21.9 mmol/L (22.0-26.0); BG METHEMOGLOBIN 0.2 % (0.0-1.5); BG OXYGEN SATURATION 94.6 % (92.0-98.5); BG OXYHEMOGLOBIN 93.3 % (94.0-97.0); BG PCO2 40.4 mmHg (35.0-45.0); BG PH 7.351 (7.350-7.450); BG PO2 75.4 mmHg (75.0-100.0); BG SAMPLE SITE RIGHT RADIAL; BG TOTAL HEMOGLOBIN 14.4 g/dL (12.0-18.0); BG VENT MODE ROOM AIR
[2019-09-02 10:20] LABS: HEMATOCRIT. 41.5 % (42.0-52.0); HEMOGLOBIN. 13.8 g/dL (14.0-18.0); MEAN CORPUSCULAR HEMOGLOBIN 27.7 pg (28.0-32.0); MEAN CORPUSCULAR VOLUME 83.4 fL (80.0-94.0); MEAN PLATELET VOLUME 8.9 fl (7.4-10.4); PLATELET 231 x1000/uL (130-400); RED BLOOD CELL COUNT 4.98 mill/uL (4.7-6.1); RED CELL DISTRIBUTION WIDTH 17.2 % (11.6-14.6)
[2019-09-02 10:32] LABS: CHLORIDE 103 mEq/L (98-107)
[2019-09-02 12:00] VITALS: BP 149/65
[2019-09-02 16:00] VITALS: BP 156/73
[2019-09-02 18:03] LABS: PLATELET ESTIMATE NORMAL
[2019-09-02] MEDS: METHYLPREDNISOLONE SOD SUCC 40 MG/ML VIAL IV SCH ×2 (18:11→23:53)
[2019-09-02 20:22] VITALS: BP 126/65
[2019-09-02] MEDS: IPRATROPIUM/ALBUTEROL 0.5-3(2.5)MG/3ML NEB HHN PRN (22:04)
[2019-09-03 00:06] VITALS: BP 102/68
[2019-09-03 04:00] VITALS: BP 138/62
[2019-09-03] MEDS: METHYLPREDNISOLONE SOD SUCC 40 MG/ML VIAL IV SCH ×3 (06:34→18:15)
[2019-09-03] MEDS: PANTOPRAZOLE 40MG DR TABLET PO SCH (06:34)
[2019-09-03] MEDS: GABAPENTIN 300MG CAPSULE PO SCH ×3 (06:34→21:01)
[2019-09-03] MEDS: HYDROCODONE/ACETAMINOPHEN 10/325MG TABLET PO PRN ×3 (06:41→18:15)
[2019-09-03 08:00] VITALS: BP 146/75
[2019-09-03] MEDS: NICOTINE 21MG PATCH TD SCH (08:52)
[2019-09-03] MEDS: LEVOFLOXACIN 500MG PREMIX 100 ML IV SCH (08:52)
[2019-09-03] MEDS: ENOXAPARIN 40MG/0.4ML SYR SUBCUT SCH (08:52)
[2019-09-03] MEDS: LOSARTAN POTASSIUM 50 MG TABLET PO SCH (08:53)
[2019-09-03] MEDS: AMLODIPINE 10MG TABLET PO SCH (08:53)
[2019-09-03] MEDS: CELECOXIB 100MG CAPSULE PO SCH ×2 (08:53→20:57)
[2019-09-03 12:00] VITALS: BP 130/96
[2019-09-03] MEDS: IPRATROPIUM/ALBUTEROL 0.5-3(2.5)MG/3ML NEB HHN PRN (15:27)
[2019-09-03 16:00] VITALS: BP 129/67
[2019-09-03 20:14] VITALS: BP 153/76
[2019-09-03] MEDS: ZOLPIDEM TARTRATE 5MG TABLET PO PRN (22:39)
[2019-09-04] VITALS: BP 139/81
[2019-09-04] MEDS: METHYLPREDNISOLONE SOD SUCC 40 MG/ML VIAL IV SCH ×3 (00:05→12:22)
[2019-09-04] MEDS: HYDROCODONE/ACETAMINOPHEN 10/325MG TABLET PO PRN ×3 (00:05→10:13)
[2019-09-04 04:00] VITALS: BP 137/96
[2019-09-04] MEDS: GABAPENTIN 300MG CAPSULE PO SCH ×2 (06:43→14:01)
[2019-09-04] MEDS: PANTOPRAZOLE 40MG DR TABLET PO SCH (06:43)
[2019-09-04 08:00] VITALS: BP 148/92
[2019-09-04] MEDS ORDERED: LEVOFLOXACIN 500MG PREMIX 100 ML IV SCH (09:00)
[2019-09-04] MEDS: LOSARTAN POTASSIUM 50 MG TABLET PO SCH (09:44)
[2019-09-04] MEDS: CELECOXIB 100MG CAPSULE PO SCH (09:45)
[2019-09-04] MEDS: ENOXAPARIN 40MG/0.4ML SYR SUBCUT SCH (09:45)
[2019-09-04] MEDS: AMLODIPINE 10MG TABLET PO SCH (09:45)
[2019-09-04] MEDS: NICOTINE 21MG PATCH TD SCH (09:46)
[2019-09-04 12:00] VITALS: BP 136/83
[2019-09-04 15:03] VITALS: BP 136/83
== END 2019-09-04 15:27 | disposition home or self-care (01) | DRG 871 ==
LOC: ER 00:44 → 6WST 02:47 → ENRESERV 07:33 → ER 09:07 → 6EST 09-03 22:30
PROVIDERS: ADMIT Hospitalist; ATTEND Hospitalist
DX: A41.9 Sepsis, unspecified organism (principal); J96.00 Acute respiratory failure, unspecified whether with hypoxia or hypercapnia; J68.0 Bronchitis and pneumonitis due to chemicals, gases, fumes and vapors; L03.90 Cellulitis, unspecified; L02.419 Cutaneous abscess of limb, unspecified; J44.1 Chronic obstructive pulmonary disease with (acute) exacerbation; I10 Essential (primary) hypertension; M19.90 Unspecified osteoarthritis, unspecified site; G89.4 Chronic pain syndrome; F32.9 Major depressive disorder, single episode, unspecified; G62.9 Polyneuropathy, unspecified; M75.00 Adhesive capsulitis of unspecified shoulder; S46.011A Strain of muscle(s) and tendon(s) of the rotator cuff of right shoulder, initial encounter; F17.210 Nicotine dependence, cigarettes, uncomplicated; X58.XXXA Exposure to other specified factors, initial encounter; F14.90 Cocaine use, unspecified, uncomplicated; F19.11 Other psychoactive substance abuse, in remission; Z86.73 Personal history of transient ischemic attack (TIA), and cerebral infarction without residual deficits; Z82.49 Family history of ischemic heart disease and other diseases of the circulatory system; Z88.0 Allergy status to penicillin; Z79.891 Long term (current) use of opiate analgesic; Z79.899 Other long term (current) drug therapy; Y93.89 Activity, other specified; Y92.89 Other specified places as the place of occurrence of the external cause; Y99.8 Other external cause status
CPT/HCPCS: 36415; 36600; 71045; 73221; 80053; 82375; 82805; 83880; 84484; 85025; 93005; 94640; 99285; J1650; J1956; J2270; J2920; J2930; J3370; J3490; J7512

== ENCOUNTER 2019-09-06 21:41 | Inpatient (IN) | payer MEDICARE, MEDICAID ==
[~2019-09-06] VITALS: Ht 170.2 cm; Wt 63.5 kg
[2019-09-06] MEDS ORDERED: IPRATROPIUM BROMIDE (0.02%) 0.5MG/2.5ML NEB HHN STA (22:06)
[2019-09-06] MEDS ORDERED: ALBUTEROL (0.083%) 2.5MG/3ML NEB HHN STA (22:06)
[2019-09-06 23:03] LABS: HEMATOCRIT. 39.4 % (42.0-52.0); HEMOGLOBIN. 13.1 g/dL (14.0-18.0); MEAN CORPUSCULAR HEMOGLOBIN 28.1 pg (28.0-32.0); MEAN CORPUSCULAR VOLUME 84.3 fL (80.0-94.0); MEAN PLATELET VOLUME 8.3 fl (7.4-10.4); PLATELET 188 x1000/uL (130-400); RED BLOOD CELL COUNT 4.67 mill/uL (4.7-6.1); RED CELL DISTRIBUTION WIDTH 17.5 % (11.6-14.6)
[2019-09-06 23:10] LABS: PROTHROMBIN TIME 10.1 sec (9.6-11.0)
[2019-09-06 23:15] LABS: CHLORIDE 102 mEq/L (98-107)
[2019-09-06 23:23] LABS: PLATELET ESTIMATE NORMAL
[2019-09-07] MEDS ORDERED: VANCOMYCIN 1 G PREMIX 200 ML IV SCH (00:15)
[2019-09-07] MEDS ORDERED: LEVOFLOXACIN 750MG PREMIX 150 ML IV SCH (00:15)
[2019-09-07] MEDS ORDERED: METRONIDAZOLE 500 MG PREMIX 100 ML IV SCH (00:15)
[2019-09-07 00:37] LABS: CLARITY URINE CLEAR (CLEAR); COLOR URINE YELLOW (YELLOW); KETONES URINE TRACE (NEGATIVE); LEUKOCYTE ESTERASE URINE NEGATIVE (NEGATIVE); NITRITE URINE NEGATIVE (NEGATIVE); OCCULT BLOOD URINE NEGATIVE (NEGATIVE); PROTEIN URINE 1+ (NEGATIVE); SPECIFIC GRAVITY URINE 1.023 (1.005-1.030)
[2019-09-07] MEDS ORDERED: MORPHINE SULFATE 4 MG/ML CPJ (NOT FOR IM USE) IV ONE (01:15)
[2019-09-07] MEDS ORDERED: ACETAMINOPHEN 325MG TABLET PO PRN (05:45)
[2019-09-07] MEDS ORDERED: ONDANSETRON HCL 4MG/2ML INJ IV PRN (05:45)
[2019-09-07] MEDS ORDERED: DOCUSATE SODIUM 100MG CAPSULE PO PRN (05:45)
[2019-09-07] MEDS ORDERED: MAGNESIUM/ALUMINUM HYDROXIDE/SIMETHICONE 30ML UDC PO PRN (05:45)
[2019-09-07] MEDS ORDERED: GUAIFENESIN 200MG/10ML SUGAR FREE UDC PO PRN (05:45)
[2019-09-07] MEDS ORDERED: IPRATROPIUM/ALBUTEROL 0.5-3(2.5)MG/3ML NEB NEB PRN (05:45)
[2019-09-07] MEDS ORDERED: METHYLPREDNISOLONE SOD SUCC 125 MG/2 ML VIAL IV SCH (06:00)
[2019-09-07] MEDS ORDERED: CLINDAMYCIN 600MG PREMIX 50 ML IV ONE (06:00)
[2019-09-07] MEDS: HYDROCODONE/ACETAMINOPHEN 10/325MG TABLET PO PRN ×4 (06:23→21:53)
[2019-09-07] MEDS: CLONIDINE 0.1MG TABLET PO PRN (06:23)
[2019-09-07] MEDS ORDERED: ENOXAPARIN 40MG/0.4ML SYR SUBCUT SCH (09:00)
[2019-09-07] MEDS: AMLODIPINE 10MG TABLET PO SCH (10:16)
[2019-09-07 12:00] VITALS: BP 118/70
[2019-09-07] MEDS ORDERED: IPRATROPIUM/ALBUTEROL 0.5-3(2.5)MG/3ML NEB HHN PRN (13:30)
[2019-09-07] MEDS ORDERED: SODIUM BICARBONATE 4% (2.4MEQ) 5ML VIAL IV ONE (13:58)
[2019-09-07] MEDS ORDERED: LIDOCAINE HCL 1% 20ML VIAL (Pyxis) INJ ONE (13:58)
[2019-09-07 14:46] VITALS: BP 142/86
[2019-09-07] MEDS: LOSARTAN POTASSIUM 50 MG TABLET PO SCH (15:07)
[2019-09-07] MEDS: GABAPENTIN 400MG CAPSULE PO SCH ×2 (15:07→21:53)
[2019-09-07 16:00] VITALS: BP 158/80
[2019-09-07] MEDS: CELECOXIB 100MG CAPSULE PO SCH (17:14)
[2019-09-07] MEDS: VANCOMYCIN 750 MG PREMIX 150 ML IV SCH (17:18)
[2019-09-07 20:00] VITALS: BP_SYST 160; BP_SYST 168; BP_DIAS 77; BP_DIAS 90
[2019-09-07] MEDS: ENOXAPARIN 60MG/0.6ML SYR SUBCUT SCH (21:00)
[2019-09-08] MEDS ORDERED: LEVOFLOXACIN 500MG PREMIX 100 ML IV SCH
[2019-09-08] MEDS: VANCOMYCIN 750 MG PREMIX 150 ML IV SCH ×2 (03:16→21:56)
[2019-09-08 04:00] VITALS: BP 129/70
[2019-09-08 05:48] VITALS: BP 129/70
[2019-09-08] MEDS: GABAPENTIN 400MG CAPSULE PO SCH ×3 (06:00→21:56)
[2019-09-08 08:00] VITALS: BP 130/88
[2019-09-08] MEDS: CELECOXIB 100MG CAPSULE PO SCH ×2 (09:13→17:17)
[2019-09-08] MEDS: LOSARTAN POTASSIUM 50 MG TABLET PO SCH (09:13)
[2019-09-08] MEDS: PREDNISONE 20MG TABLET PO SCH (09:13)
[2019-09-08] MEDS: AMLODIPINE 10MG TABLET PO SCH (09:13)
[2019-09-08] MEDS: ENOXAPARIN 60MG/0.6ML SYR SUBCUT SCH ×2 (09:21→20:24)
[2019-09-08] MEDS: HYDROCODONE/ACETAMINOPHEN 10/325MG TABLET PO PRN ×3 (09:22→22:10)
[2019-09-08 11:19] LABS: HEMOGLOBIN. 12.2 g/dL (14.0-18.0); MEAN CORPUSCULAR HEMOGLOBIN 27.8 pg (28.0-32.0); MEAN CORPUSCULAR VOLUME 84.2 fL (80.0-94.0); PLATELET 199 x1000/uL (130-400); RED BLOOD CELL COUNT 4.39 mill/uL (4.7-6.1); RED CELL DISTRIBUTION WIDTH 17.4 % (11.6-14.6)
[2019-09-08 11:35] LABS: CHLORIDE 101 mEq/L (98-107)
[2019-09-08 12:00] VITALS: BP 137/52
[2019-09-08 14:14] LABS: PLATELET ESTIMATE NORMAL
[2019-09-08 16:00] VITALS: BP 140/82
[2019-09-08] MEDS ORDERED: ZOLPIDEM TARTRATE 5MG TABLET PO PRN (19:00)
[2019-09-08 20:00] VITALS: BP 165/87
[2019-09-08] MEDS: CLONIDINE 0.1MG TABLET PO PRN (20:24)
[2019-09-08] MEDS: LEVOFLOXACIN 500MG PREMIX 100 ML IV SCH (20:25)
[2019-09-09] VITALS (7 sets, daily range): BP systolic 132–162; BP diastolic 67–93
[2019-09-09] MEDS: HYDROCODONE/ACETAMINOPHEN 10/325MG TABLET PO PRN ×4 (04:43→21:37)
[2019-09-09] MEDS: GABAPENTIN 400MG CAPSULE PO SCH ×3 (05:43→21:38)
[2019-09-09] MEDS: LOSARTAN POTASSIUM 50 MG TABLET PO SCH (09:06)
[2019-09-09] MEDS: AMLODIPINE 10MG TABLET PO SCH (09:06)
[2019-09-09] MEDS: VANCOMYCIN 750 MG PREMIX 150 ML IV SCH (09:06)
[2019-09-09] MEDS: ENOXAPARIN 60MG/0.6ML SYR SUBCUT SCH ×2 (09:07→21:38)
[2019-09-09] MEDS: PREDNISONE 20MG TABLET PO SCH (09:07)
[2019-09-09] MEDS: CELECOXIB 100MG CAPSULE PO SCH ×2 (09:12→16:55)
[2019-09-09] MEDS: VISCOUS LIDOCAINE 2% 15 ML UDC MM PRN ×2 (12:18→18:08)
[2019-09-09] MEDS: LEVOFLOXACIN 500MG PREMIX 100 ML IV SCH (21:39)
== END 2019-09-09 22:45 | disposition left against medical advice (07) | DRG 871 ==
LOC: ER 21:50 → 6EST 09-07 01:12 → EDBEDREQ 09-07 01:18 → EDBEDREQSVC 09-07 06:39 → EDBEDREQTM 09-07 06:39 → EDBEDREQ 09-07 06:39 → ENRESERV 09-07 07:33
PROVIDERS: ADMIT Hospitalist; ATTEND Hospitalist
PROC: 02HV33Z Insertion of Infusion Device into Superior Vena Cava, Percutaneous Approach (ICD-10-PCS; principal; 2019-09-07)
PROC: B518ZZA Fluoroscopy of Superior Vena Cava, Guidance (ICD-10-PCS; 2019-09-07)
PROC: B548ZZA Ultrasonography of Superior Vena Cava, Guidance (ICD-10-PCS; 2019-09-07)
DX: A41.9 Sepsis, unspecified organism (principal); E43 Unspecified severe protein-calorie malnutrition; I82.622 Acute embolism and thrombosis of deep veins of left upper extremity; L03.114 Cellulitis of left upper limb; M79.89 Other specified soft tissue disorders; I10 Essential (primary) hypertension; F17.200 Nicotine dependence, unspecified, uncomplicated; G89.4 Chronic pain syndrome; Z53.29 Procedure and treatment not carried out because of patient's decision for other reasons; G62.9 Polyneuropathy, unspecified; J44.9 Chronic obstructive pulmonary disease, unspecified; Z88.0 Allergy status to penicillin; Z79.891 Long term (current) use of opiate analgesic; Z79.899 Other long term (current) drug therapy
CPT/HCPCS: 36415; 36573; 71045; 73060; 73090; 76937; 80053; 81003; 83605; 85025; 87077; 93005; 93971; 94640; 99285; C1725; J1650; J1956; J2270; J2930; J3370; J3490; J7512

== ENCOUNTER 2019-09-09 23:36 | Inpatient (IN) | payer MEDICARE, MEDICAID ==
[~2019-09-09] VITALS: Ht 170.2 cm; Wt 94.8 kg
[2019-09-10 01:05] LABS: HEMATOCRIT. 38.3 % (42.0-52.0); HEMOGLOBIN. 12.6 g/dL (14.0-18.0); MEAN CORPUSCULAR HEMOGLOBIN 27.8 pg (28.0-32.0); MEAN CORPUSCULAR VOLUME 84.2 fL (80.0-94.0); MEAN PLATELET VOLUME 7.8 fl (7.4-10.4); PLATELET 209 x1000/uL (130-400); RED BLOOD CELL COUNT 4.55 mill/uL (4.7-6.1); RED CELL DISTRIBUTION WIDTH 17.5 % (11.6-14.6)
[2019-09-10 01:12] LABS: CHLORIDE 103 mEq/L (98-107)
[2019-09-10 01:16] LABS: INR 0.9
[2019-09-10 04:00] VITALS: BP 150/22
[2019-09-10 04:09] LABS: PLATELET ESTIMATE NORMAL
[2019-09-10 04:52] VITALS: BP 151/85
[2019-09-10 08:00] VITALS: BP 129/61
[2019-09-10] MEDS ORDERED: IPRATROPIUM/ALBUTEROL 0.5-3(2.5)MG/3ML NEB HHN SCH (08:00)
[2019-09-10] MEDS: ENOXAPARIN 100MG/ML SYR SUBCUT SCH ×2 (09:15→19:53)
[2019-09-10] MEDS: PREDNISONE 20MG TABLET PO SCH (09:16)
[2019-09-10] MEDS: HYDROCODONE/ACETAMINOPHEN 10/325MG TABLET PO PRN ×2 (09:16→18:23)
[2019-09-10] MEDS ORDERED: VANCOMYCIN 1500MG in DEXTROSE 5% WATER 250ML IV NR (10:00)
[2019-09-10 12:00] VITALS: BP_SYST 140; BP_SYST 149; BP_DIAS 54; BP_DIAS 98
[2019-09-10] MEDS: GABAPENTIN 400MG CAPSULE PO SCH ×2 (14:40→19:54)
[2019-09-10 16:00] VITALS: BP 128/90
[2019-09-10] MEDS: VISCOUS LIDOCAINE 2% 15 ML UDC MM PRN (18:15)
[2019-09-10] MEDS: VANCOMYCIN 1250MG in DEXTROSE 5% WATER 250ML IV SCH (19:52)
[2019-09-10 20:00] VITALS: BP 132/63
[2019-09-10] MEDS: ZOLPIDEM TARTRATE 5MG TABLET PO PRN (21:37)
[2019-09-11] VITALS: BP 127/69
[2019-09-11] MEDS ORDERED: VANCOMYCIN 750 MG PREMIX 150 ML IV SCH
[2019-09-11] MEDS: VISCOUS LIDOCAINE 2% 15 ML UDC MM PRN ×3 (00:26→17:57)
[2019-09-11] MEDS: HYDROCODONE/ACETAMINOPHEN 10/325MG TABLET PO PRN ×3 (00:26→13:14)
[2019-09-11 04:00] VITALS: BP 130/94
[2019-09-11] MEDS: GABAPENTIN 400MG CAPSULE PO SCH ×3 (06:27→21:01)
[2019-09-11 08:00] VITALS: BP 112/85
[2019-09-11] MEDS: VANCOMYCIN 1250MG in DEXTROSE 5% WATER 250ML IV SCH ×2 (09:10→20:20)
[2019-09-11] MEDS: ENOXAPARIN 100MG/ML SYR SUBCUT SCH ×2 (09:11→21:01)
[2019-09-11] MEDS: PREDNISONE 20MG TABLET PO SCH (09:11)
[2019-09-11 12:00] VITALS: BP 141/76
[2019-09-11 16:00] VITALS: BP 126/68
[2019-09-11 20:00] VITALS: BP 150/95
[2019-09-11] MEDS: ZOLPIDEM TARTRATE 5MG TABLET PO PRN (21:09)
[2019-09-12] VITALS: BP 142/86
[2019-09-12] MEDS: HYDROCODONE/ACETAMINOPHEN 10/325MG TABLET PO PRN ×3 (01:37→18:22)
[2019-09-12 04:00] VITALS: BP 139/67
[2019-09-12] MEDS: GABAPENTIN 400MG CAPSULE PO SCH ×3 (05:20→21:57)
[2019-09-12] MEDS: VISCOUS LIDOCAINE 2% 15 ML UDC MM PRN ×4 (05:20→18:12)
[2019-09-12] MEDS: IPRATROPIUM/ALBUTEROL 0.5-3(2.5)MG/3ML NEB HHN PRN (05:40)
[2019-09-12] MEDS: PREDNISONE 20MG TABLET PO SCH (08:22)
[2019-09-12] MEDS: ENOXAPARIN 100MG/ML SYR SUBCUT SCH ×2 (08:23→20:46)
[2019-09-12] MEDS: VANCOMYCIN 1250MG in DEXTROSE 5% WATER 250ML IV SCH (08:23)
[2019-09-12 12:01] LABS: CHLORIDE 99 mEq/L (98-107)
[2019-09-12] MEDS: VANCOMYCIN 1500MG in DEXTROSE 5% WATER 250ML IV SCH (18:12)
[2019-09-12] MEDS: NYSTATIN 100,000 UNITS/ML 5ML UDC SSW SCH ×2 (18:12→23:23)
[2019-09-12 20:00] VITALS: BP 134/79
[2019-09-12] MEDS: ZOLPIDEM TARTRATE 5MG TABLET PO PRN (21:57)
[2019-09-13] VITALS: BP 131/83
[2019-09-13 04:00] VITALS: BP 92/55
[2019-09-13] MEDS: VANCOMYCIN 1500MG in DEXTROSE 5% WATER 250ML IV SCH ×2 (05:31→17:36)
[2019-09-13] MEDS: GABAPENTIN 400MG CAPSULE PO SCH ×3 (05:36→21:27)
[2019-09-13] MEDS: NYSTATIN 100,000 UNITS/ML 5ML UDC SSW SCH ×3 (05:36→17:36)
[2019-09-13 08:00] VITALS: BP 88/52
[2019-09-13] MEDS: PREDNISONE 20MG TABLET PO SCH (08:52)
[2019-09-13] MEDS: ENOXAPARIN 100MG/ML SYR SUBCUT SCH ×2 (08:53→21:28)
[2019-09-13] MEDS: HYDROCODONE/ACETAMINOPHEN 10/325MG TABLET PO PRN (08:53)
[2019-09-13] MEDS: IPRATROPIUM/ALBUTEROL 0.5-3(2.5)MG/3ML NEB HHN PRN (09:12)
[2019-09-13] MEDS: VISCOUS LIDOCAINE 2% 15 ML UDC MM PRN (11:01)
[2019-09-13 12:00] VITALS: BP 85/56
[2019-09-13 16:00] VITALS: BP 131/71
[2019-09-13 17:26] LABS: HEMATOCRIT. 38.8 % (42.0-52.0); HEMOGLOBIN. 13.1 g/dL (14.0-18.0); MEAN CORPUSCULAR HEMOGLOBIN 27.8 pg (28.0-32.0); MEAN CORPUSCULAR VOLUME 82.5 fL (80.0-94.0); MEAN PLATELET VOLUME 7.3 fl (7.4-10.4); PLATELET 267 x1000/uL (130-400); RED CELL DISTRIBUTION WIDTH 16.7 % (11.6-14.6)
[2019-09-13 20:00] VITALS: BP 141/77
[2019-09-13] MEDS: ZOLPIDEM TARTRATE 5MG TABLET PO PRN (21:27)
[2019-09-13 23:09] LABS: PLATELET ESTIMATE NORMAL
[2019-09-14] VITALS: BP 144/74
[2019-09-14] MEDS: HYDROCODONE/ACETAMINOPHEN 10/325MG TABLET PO PRN ×2 (00:15→08:19)
[2019-09-14] MEDS: NYSTATIN 100,000 UNITS/ML 5ML UDC SSW SCH ×3 (00:16→12:15)
[2019-09-14 04:00] VITALS: BP 132/78
[2019-09-14 04:55] LABS: CHLORIDE 99 mEq/L (98-107)
[2019-09-14 04:58] LABS: BASOPHILS % 0.2 % (0.0-2.0); EOSINOPHILS % 0.4 % (0.0-5.0); HEMATOCRIT. 41.9 % (42.0-52.0); HEMOGLOBIN. 13.8 g/dL (14.0-18.0); LYMPHOCYTES % 14.4 % (20.0-50.0); MEAN CORPUSCULAR HEMOGLOBIN 27.6 pg (28.0-32.0); MEAN CORPUSCULAR VOLUME 83.8 fL (80.0-94.0); MEAN PLATELET VOLUME 7.2 fl (7.4-10.4); MONOCYTES % 4.5 % (2.0-8.0); NEUTROPHILS % 80.5 % (40.0-76.0); PLATELET 305 x1000/uL (130-400); RED CELL DISTRIBUTION WIDTH 16.7 % (11.6-14.6)
[2019-09-14] MEDS: VANCOMYCIN 1500MG in DEXTROSE 5% WATER 250ML IV SCH (06:09)
[2019-09-14] MEDS: GABAPENTIN 400MG CAPSULE PO SCH (06:15)
[2019-09-14] MEDS: PREDNISONE 20MG TABLET PO SCH (08:18)
[2019-09-14] MEDS: ENOXAPARIN 100MG/ML SYR SUBCUT SCH (08:18)
[2019-09-14 09:00] VITALS: BP 128/80
[2019-09-14] MEDS ORDERED: SULF1TAB47 MT (11:48)
[2019-09-14] MEDS ORDERED: APIX5TAB MT (11:48)
[2019-09-14 11:52] VITALS: BP 141/71
[2019-09-14 12:00] VITALS: BP 141/70
== END 2019-09-14 14:15 | disposition home or self-care (01) | DRG 300 ==
LOC: ER 23:36 → 6EST 09-10 00:35 → ENRESERV 09-10 01:22
PROVIDERS: ADMIT Hospitalist; ATTEND Hospitalist
DX: I82.622 Acute embolism and thrombosis of deep veins of left upper extremity (principal); L03.114 Cellulitis of left upper limb; B37.0 Candidal stomatitis; J44.1 Chronic obstructive pulmonary disease with (acute) exacerbation; B95.62 Methicillin resistant Staphylococcus aureus infection as the cause of diseases classified elsewhere; F17.210 Nicotine dependence, cigarettes, uncomplicated; G62.9 Polyneuropathy, unspecified; G89.4 Chronic pain syndrome; I10 Essential (primary) hypertension; J44.9 Chronic obstructive pulmonary disease, unspecified; F32.9 Major depressive disorder, single episode, unspecified; M19.90 Unspecified osteoarthritis, unspecified site; Z88.0 Allergy status to penicillin; Z79.1 Long term (current) use of non-steroidal anti-inflammatories (NSAID); Z86.73 Personal history of transient ischemic attack (TIA), and cerebral infarction without residual deficits; Z79.899 Other long term (current) drug therapy; Z86.718 Personal history of other venous thrombosis and embolism; Z71.6 Tobacco abuse counseling
CPT/HCPCS: 36415; 80048; 80053; 80202; 85025; 93005; 94640; 99285; J1650; J3370; J7060; J7512

== ENCOUNTER 2019-09-30 03:38 | Inpatient (IN) | payer MEDICARE, MEDICAID ==
[2019-09-29 15:16] VITALS: BP 127/77
[~2019-09-30] VITALS: Ht 182.9 cm; Wt 89.4 kg
[~2019-09-30 03:38] MED LIST changes: +APIX5TAB MT; +SULF1TAB47 MT
[2019-09-30] MEDS ORDERED: APIXABAN 5 MG TABLET PO STA (06:27)
[2019-09-30] MEDS ORDERED: ALBUTEROL (0.083%) 2.5MG/3ML NEB HHN ONE (06:30)
[2019-09-30] MEDS ORDERED: METHYLPREDNISOLONE SOD SUCC 125 MG/2 ML VIAL IV ONE (06:30)
[2019-09-30 06:51] LABS: CHLORIDE 105 mEq/L (98-107)
[2019-09-30 06:57] LABS: BASOPHILS % 0.5 % (0.0-2.0); EOSINOPHILS % 2.1 % (0.0-5.0); HEMATOCRIT. 37.2 % (42.0-52.0); HEMOGLOBIN. 12.4 g/dL (14.0-18.0); LYMPHOCYTES % 20.5 % (20.0-50.0); MEAN CORPUSCULAR HEMOGLOBIN 27.7 pg (28.0-32.0); MEAN CORPUSCULAR VOLUME 83.2 fL (80.0-94.0); MEAN PLATELET VOLUME 7.9 fl (7.4-10.4); MONOCYTES % 9.8 % (2.0-8.0); NEUTROPHILS % 67.1 % (40.0-76.0); PLATELET 325 x1000/uL (130-400); RED BLOOD CELL COUNT 4.47 mill/uL (4.7-6.1); RED CELL DISTRIBUTION WIDTH 15.9 % (11.6-14.6)
[2019-09-30] MEDS ORDERED: HYDROCODONE/ACETAMINOPHEN 5/325MG TABLET PO ONE (09:45)
[2019-09-30] MEDS ORDERED: LORAZEPAM 2MG/ML CPJ IV PRN (10:15)
[2019-09-30] MEDS ORDERED: ONDANSETRON HCL 4MG/2ML INJ IV PRN (10:15)
[2019-09-30] MEDS ORDERED: ACETAMINOPHEN 325MG TABLET PO PRN (10:15)
[2019-09-30] MEDS ORDERED: CLONIDINE 0.1MG TABLET PO PRN (10:15)
[2019-09-30] MEDS ORDERED: IPRATROPIUM/ALBUTEROL 0.5-3(2.5)MG/3ML NEB HHN PRN (10:15)
[2019-09-30] MEDS ORDERED: MAGNESIUM/ALUMINUM HYDROXIDE/SIMETHICONE 30ML UDC PO PRN (10:15)
[2019-09-30] MEDS ORDERED: LEVOFLOXACIN 500MG PREMIX 100 ML IV ONE (11:00)
[2019-09-30] MEDS: AMLODIPINE 10MG TABLET PO SCH (13:02)
[2019-09-30] MEDS: HYDROCODONE/ACETAMINOPHEN 10/325MG TABLET PO PRN ×3 (13:05→21:18)
[2019-09-30 16:00] VITALS: BP 122/83
[2019-09-30] MEDS: ENOXAPARIN 40MG/0.4ML SYR SUBCUT SCH (16:03)
[2019-09-30] MEDS: IPRATROPIUM/ALBUTEROL 0.5-3(2.5)MG/3ML NEB HHN SCH ×2 (18:10→22:06)
[2019-09-30 20:00] VITALS: BP 145/72
[2019-10-01] VITALS: BP 141/70
[2019-10-01] MEDS: HYDROCODONE/ACETAMINOPHEN 10/325MG TABLET PO PRN ×5 (01:29→20:54)
[2019-10-01] MEDS: IPRATROPIUM/ALBUTEROL 0.5-3(2.5)MG/3ML NEB HHN SCH ×4 (02:13→21:46)
[2019-10-01 04:00] VITALS: BP 137/75
[2019-10-01 05:46] LABS: CHLORIDE 105 mEq/L (98-107)
[2019-10-01 06:18] LABS: BASOPHILS % 0.2 % (0.0-2.0); EOSINOPHILS % 0.1 % (0.0-5.0); HEMATOCRIT. 32.1 % (42.0-52.0); HEMOGLOBIN. 10.8 g/dL (14.0-18.0); LYMPHOCYTES % 13.2 % (20.0-50.0); MEAN CORPUSCULAR HEMOGLOBIN 28.1 pg (28.0-32.0); MEAN CORPUSCULAR VOLUME 83.3 fL (80.0-94.0); MEAN PLATELET VOLUME 8.2 fl (7.4-10.4); MONOCYTES % 9.2 % (2.0-8.0); NEUTROPHILS % 77.3 % (40.0-76.0); PLATELET 258 x1000/uL (130-400); RED BLOOD CELL COUNT 3.85 mill/uL (4.7-6.1); RED CELL DISTRIBUTION WIDTH 15.4 % (11.6-14.6)
[2019-10-01 08:00] VITALS: BP 140/82
[2019-10-01] MEDS: AMLODIPINE 10MG TABLET PO SCH (09:12)
[2019-10-01] MEDS: ASPIRIN 81MG EC TABLET PO SCH (09:12)
[2019-10-01] MEDS ORDERED: LEVOFLOXACIN 250MG PREMIX 50 ML IV SCH (11:00)
[2019-10-01 12:00] VITALS: BP 125/79
[2019-10-01] MEDS ORDERED: VANCOMYCIN 2,000 MG in DEXT 5% WATER 500 ML IV SCH (12:00)
[2019-10-01] MEDS: LEVOFLOXACIN 250MG PREMIX 50 ML IV SCH (12:04)
[2019-10-01 16:00] VITALS: BP 103/61
[2019-10-01] MEDS: ENOXAPARIN 40MG/0.4ML SYR SUBCUT SCH (16:05)
[2019-10-01 20:00] VITALS: BP 100/73
[2019-10-01] MEDS: ZOLPIDEM TARTRATE 5MG TABLET PO PRN (21:07)
[2019-10-02 00:30] VITALS: BP 139/93
[2019-10-02] MEDS: IPRATROPIUM/ALBUTEROL 0.5-3(2.5)MG/3ML NEB HHN SCH ×4 (02:44→21:35)
[2019-10-02 04:00] VITALS: BP 128/74
[2019-10-02] MEDS: HYDROCODONE/ACETAMINOPHEN 10/325MG TABLET PO PRN ×4 (05:15→20:29)
[2019-10-02] MEDS ORDERED: VANCOMYCIN 1250MG in DEXTROSE 5% WATER 250ML IV SCH (06:00)
[2019-10-02 06:13] LABS: CHLORIDE 107 mEq/L (98-107)
[2019-10-02 08:10] VITALS: BP 133/66
[2019-10-02] MEDS: ASPIRIN 81MG EC TABLET PO SCH (09:26)
[2019-10-02] MEDS: AMLODIPINE 10MG TABLET PO SCH (09:27)
[2019-10-02 12:15] VITALS: BP 133/71
[2019-10-02] MEDS: LIDOCAINE HCL 1% 20ML VIAL (Pyxis) INJ INFIL NR ×2 (13:00→17:43)
[2019-10-02] MEDS: LEVOFLOXACIN 250MG PREMIX 50 ML IV SCH (13:20)
[2019-10-02 13:30] LABS: *AMPHETAMINES SCREEN URINE NEGATIVE (NEGATIVE); *BENZODIAZEPINES SCREEN URINE NEGATIVE (NEGATIVE); CANNABINOID URINE SCREEN NEGATIVE (NEGATIVE); METHADONE URINE SCREEN NEGATIVE (NEGATIVE)
[2019-10-02 13:31] LABS: *BARBITURATES SCREEN URINE NEGATIVE (NEGATIVE)
[2019-10-02 13:32] LABS: PHENCYCLIDINE URINE SCREEN NEGATIVE (NEGATIVE)
[2019-10-02 13:33] LABS: *COCAINE SCREEN URINE PRESUMTIVE POSITIVE (NEGATIVE)
[2019-10-02 13:34] LABS: OPIATES URINE SCREEN PRESUMTIVE POSITIVE (NEGATIVE)
[2019-10-02 16:18] VITALS: BP 122/62
[2019-10-02] MEDS: ENOXAPARIN 40MG/0.4ML SYR SUBCUT SCH (16:24)
[2019-10-02 20:09] VITALS: BP 139/70
[2019-10-02] MEDS: ZOLPIDEM TARTRATE 5MG TABLET PO PRN (20:10)
[2019-10-02] MEDS: VANCOMYCIN 1 G PREMIX 200 ML IV SCH (20:10)
[2019-10-03 00:35] VITALS: BP 128/89
[2019-10-03] MEDS: IPRATROPIUM/ALBUTEROL 0.5-3(2.5)MG/3ML NEB HHN SCH ×2 (02:43→09:00)
[2019-10-03 04:00] VITALS: BP 145/73
[2019-10-03 06:32] LABS: CHLORIDE 106 mEq/L (98-107)
[2019-10-03 08:23] VITALS: BP 134/82
[2019-10-03] MEDS: VANCOMYCIN 1 G PREMIX 200 ML IV SCH (09:04)
[2019-10-03] MEDS: ASPIRIN 81MG EC TABLET PO SCH (09:05)
[2019-10-03] MEDS: AMLODIPINE 10MG TABLET PO SCH (09:05)
[2019-10-03] MEDS: LEVOFLOXACIN 250MG PREMIX 50 ML IV SCH (11:19)
[2019-10-03] MEDS ORDERED: SULF1TAB47 MT (12:04)
[2019-10-03 12:19] VITALS: BP 151/73
[2019-10-03 13:22] VITALS: BP 151/73
== END 2019-10-03 14:00 | disposition home or self-care (01) | DRG 579 ==
LOC: ER 03:38 → 6WST 08:48 → ENRESERV 11:40
PROVIDERS: ADMIT Hospitalist; ATTEND Hospitalist
PROC: 0J9K0ZZ Drainage of Left Hand Subcutaneous Tissue and Fascia, Open Approach (ICD-10-PCS; principal; 2019-10-02)
DX: L02.414 Cutaneous abscess of left upper limb (principal); N17.0 Acute kidney failure with tubular necrosis; J44.1 Chronic obstructive pulmonary disease with (acute) exacerbation; N17.9 Acute kidney failure, unspecified; D68.59 Other primary thrombophilia; I10 Essential (primary) hypertension; G89.4 Chronic pain syndrome; M19.90 Unspecified osteoarthritis, unspecified site; F32.9 Major depressive disorder, single episode, unspecified; F41.9 Anxiety disorder, unspecified; Z86.718 Personal history of other venous thrombosis and embolism; Z86.73 Personal history of transient ischemic attack (TIA), and cerebral infarction without residual deficits; Z88.0 Allergy status to penicillin; Z79.2 Long term (current) use of antibiotics; Z79.899 Other long term (current) drug therapy; Z79.891 Long term (current) use of opiate analgesic; Z71.6 Tobacco abuse counseling; Z72.0 Tobacco use
CPT/HCPCS: 36415; 71045; 73200; 80048; 80053; 80202; 80305; 83880; 84484; 85025; 93005; 93971; 94640; 99291; J1650; J1956; J2060; J2930; J3370; J3490; J7060

== ENCOUNTER 2019-12-28 16:48 | Inpatient (IN) | payer MEDICARE, MEDICAID ==
[2019-12-28] VITALS: BP 186/92
[~2019-12-28] VITALS: Ht 170.2 cm; Wt 81.6 kg
[~2019-12-28 16:48] MED LIST changes: -CELE100C MT; -DOXY100C PO; -GABA800T MT; -HYDR-4009 MT; -P50 PO; -PROT40 MT; -TIOT18CA3 INH
[2019-12-28] MEDS ORDERED: METHYLPREDNISOLONE SOD SUCC 125 MG/2 ML VIAL IV STA (19:14)
[2019-12-28] MEDS ORDERED: ALBUTEROL (0.083%) 2.5MG/3ML NEB HHN STA ×2 (19:14→20:55)
[2019-12-28] MEDS ORDERED: IPRATROPIUM BROMIDE (0.02%) 0.5MG/2.5ML NEB HHN STA ×2 (19:14→20:55)
[2019-12-28] MEDS ORDERED: ASPIRIN 81MG TABLET PO ONE (19:15)
[2019-12-28 19:27] LABS: BASOPHILS % 0.3 % (0.0-2.0); HEMATOCRIT. 45.6 % (42.0-52.0); HEMOGLOBIN. 15.2 g/dL (14.0-18.0); LYMPHOCYTES % 9.5 % (20.0-50.0); MEAN CORPUSCULAR HEMOGLOBIN 28.2 pg (28.0-32.0); MEAN CORPUSCULAR VOLUME 84.9 fL (80.0-94.0); MONOCYTES % 4.8 % (2.0-8.0); NEUTROPHILS % 85.4 % (40.0-76.0); PLATELET 215 x1000/uL (130-400); RED BLOOD CELL COUNT 5.37 mill/uL (4.7-6.1); RED CELL DISTRIBUTION WIDTH 14.5 % (11.6-14.6)
[2019-12-28 19:32] LABS: CHLORIDE 107 mEq/L (98-107)
[2019-12-28 19:41] LABS: PARTIAL THROMBOPLASTIN TIME 35.2 sec (23.4-31.0); PROTHROMBIN TIME 10.2 sec (9.6-11.0)
[2019-12-28] MEDS ORDERED: KETOROLAC 15MG/ML VIAL IV ONE (21:00)
[2019-12-28] MEDS ORDERED: ACETAMINOPHEN 325MG TABLET PO PRN (22:45)
[2019-12-28] MEDS ORDERED: DOCUSATE SODIUM 100MG CAPSULE PO PRN (22:45)
[2019-12-28] MEDS ORDERED: IPRATROPIUM/ALBUTEROL 0.5-3(2.5)MG/3ML NEB NEB PRN (22:45)
[2019-12-28] MEDS ORDERED: ONDANSETRON HCL 4MG/2ML INJ IV PRN (22:45)
[2019-12-28] MEDS ORDERED: GUAIFENESIN 200MG/10ML SUGAR FREE UDC PO PRN (22:45)
[2019-12-28 23:20] VITALS: BP 186/92
[2019-12-29] MEDS ORDERED: ENALAPRIL 2.5MG/2ML VIAL 2ML IV PRN (00:15)
[2019-12-29] MEDS ORDERED: INFLUENZA VACCINE 05/PF 0.5 ML VIAL IM ONE (00:15)
[2019-12-29] MEDS ORDERED: PNEUMOCOCCAL 23-VAL P-SAC VAC 0.5 ML IM ONE (00:15)
[2019-12-29] MEDS: HYDROMORPHONE HCL/PF 2MG/ML CPJ IV PRN ×4 (00:34→22:02)
[2019-12-29] MEDS: HYDRALAZINE HCL 50MG TABLET PO SCH ×4 (00:35→22:02)
[2019-12-29] MEDS ORDERED: LEVOFLOXACIN 500MG PREMIX 100 ML IV SCH (01:00)
[2019-12-29] MEDS: METHYLPREDNISOLONE SOD SUCC 125 MG/2 ML VIAL IV SCH ×4 (01:36→20:17)
[2019-12-29] MEDS: IPRATROPIUM/ALBUTEROL 0.5-3(2.5)MG/3ML NEB NEB SCH ×4 (01:42→21:43)
[2019-12-29] MEDS: LORAZEPAM 2MG/ML CPJ IV PRN (02:09)
[2019-12-29] MEDS ORDERED: *PATIENT'S OWN MEDICATION STORAGE XX SCH (02:15)
[2019-12-29 04:00] VITALS: BP 169/98
[2019-12-29] MEDS ORDERED: ENALAPRIL 2.5MG/2ML VIAL 2ML IV SCH (06:00)
[2019-12-29 07:38] LABS: HEMATOCRIT. 45.6 % (42.0-52.0); MEAN CORPUSCULAR HEMOGLOBIN 28.1 pg (28.0-32.0); MEAN CORPUSCULAR VOLUME 85.5 fL (80.0-94.0); MEAN PLATELET VOLUME 9.4 fl (7.4-10.4); PLATELET 208 x1000/uL (130-400); RED BLOOD CELL COUNT 5.33 mill/uL (4.7-6.1); RED CELL DISTRIBUTION WIDTH 14.1 % (11.6-14.6)
[2019-12-29 07:43] LABS: CHLORIDE 103 mEq/L (98-107)
[2019-12-29 08:00] VITALS: BP 164/92
[2019-12-29] MEDS ORDERED: HYDRALAZINE HCL 50MG TABLET PO SCH (09:00)
[2019-12-29] MEDS ORDERED: ENOXAPARIN 40MG/0.4ML SYR SUBCUT SCH (09:00)
[2019-12-29] MEDS: AMLODIPINE 10MG TABLET PO SCH (09:18)
[2019-12-29 09:29] LABS: BG BASE EXCESS -1.8 mmol/L (-2.0-2.0); BG CARBOXYHEMOGLOBIN 0.8 % (0.5-1.5); BG DEOXYHEMOGLOBIN 6.1 % (0.0-5.0); BG FRACTION INSPIRED OXYGEN 21; BG HCO3 ACT 23.7 mmol/L (22.0-26.0); BG METHEMOGLOBIN 0.2 % (0.0-1.5); BG OXYGEN SATURATION 93.8 % (92.0-98.5); BG OXYHEMOGLOBIN 92.9 % (94.0-97.0); BG PCO2 42.9 mmHg (35.0-45.0); BG PO2 69.9 mmHg (75.0-100.0); BG TOTAL HEMOGLOBIN 15.5 g/dL (12.0-18.0); BG VENT MODE ROOM AIR
[2019-12-29 09:46] LABS: PLATELET ESTIMATE NORMAL
[2019-12-29 12:00] VITALS: BP 162/87
[2019-12-29] MEDS ORDERED: POTASSIUM CHLORIDE 20MEQ TABLET SR PO NR (13:30)
[2019-12-29] MEDS: GABAPENTIN 400MG CAPSULE PO SCH ×2 (14:35→22:02)
[2019-12-29 16:00] VITALS: BP 163/93
[2019-12-29] MEDS: CELECOXIB 100MG CAPSULE PO SCH (18:06)
[2019-12-29] MEDS: APIXABAN 5 MG TABLET PO SCH (18:06)
[2019-12-29 20:00] VITALS: BP 172/88
[2019-12-29] MEDS: TRAMADOL 50MG TABLET PO SCH (20:18)
[2019-12-30] VITALS: BP 156/85
[2019-12-30] MEDS: METHYLPREDNISOLONE SOD SUCC 125 MG/2 ML VIAL IV SCH ×4 (01:57→21:32)
[2019-12-30] MEDS: HYDROMORPHONE HCL/PF 2MG/ML CPJ IV PRN ×2 (01:57→05:34)
[2019-12-30] MEDS: LEVOFLOXACIN 500MG PREMIX 100 ML IV SCH (01:57)
[2019-12-30] MEDS: IPRATROPIUM/ALBUTEROL 0.5-3(2.5)MG/3ML NEB NEB SCH ×4 (03:51→20:58)
[2019-12-30 04:00] VITALS: BP 147/74
[2019-12-30] MEDS: HYDRALAZINE HCL 50MG TABLET PO SCH ×3 (06:30→21:15)
[2019-12-30] MEDS: PANTOPRAZOLE 40MG DR TABLET PO SCH (06:30)
[2019-12-30] MEDS: GABAPENTIN 400MG CAPSULE PO SCH ×3 (06:30→21:14)
[2019-12-30 08:21] VITALS: BP 143/64
[2019-12-30] MEDS: AMLODIPINE 10MG TABLET PO SCH (09:47)
[2019-12-30] MEDS: APIXABAN 5 MG TABLET PO SCH ×2 (09:47→16:51)
[2019-12-30] MEDS: LOSARTAN POTASSIUM 50 MG TABLET PO SCH (09:47)
[2019-12-30] MEDS: CELECOXIB 100MG CAPSULE PO SCH ×2 (09:47→16:51)
[2019-12-30] MEDS: HYDROCODONE/APAP 7.5/325MG 1 TAB TABLET PO PRN ×3 (10:26→21:32)
[2019-12-30 11:38] VITALS: BP 113/72
[2019-12-30 16:03] VITALS: BP 127/61
[2019-12-30] MEDS: MUPIROCIN 2% OINT 22GM TOP SCH (20:00)
[2019-12-30 20:33] VITALS: BP 157/76
[2019-12-30] MEDS: TRAMADOL 50MG TABLET PO SCH (21:15)
[2019-12-31] VITALS (7 sets, daily range): BP systolic 134–178; BP diastolic 64–93
[2019-12-31] MEDS: IPRATROPIUM/ALBUTEROL 0.5-3(2.5)MG/3ML NEB NEB SCH ×4 (01:03→21:05)
[2019-12-31] MEDS: LEVOFLOXACIN 500MG PREMIX 100 ML IV SCH (01:48)
[2019-12-31] MEDS: HYDROCODONE/APAP 7.5/325MG 1 TAB TABLET PO PRN ×5 (01:48→23:16)
[2019-12-31] MEDS: METHYLPREDNISOLONE SOD SUCC 125 MG/2 ML VIAL IV SCH ×4 (03:02→20:55)
[2019-12-31] MEDS: HYDRALAZINE HCL 50MG TABLET PO SCH ×3 (05:52→21:01)
[2019-12-31] MEDS: GABAPENTIN 400MG CAPSULE PO SCH ×3 (05:52→21:01)
[2019-12-31] MEDS: CELECOXIB 100MG CAPSULE PO SCH ×2 (09:00→17:07)
[2019-12-31] MEDS: PANTOPRAZOLE 40MG DR TABLET PO SCH (09:00)
[2019-12-31] MEDS: APIXABAN 5 MG TABLET PO SCH ×2 (09:00→17:07)
[2019-12-31] MEDS: LOSARTAN POTASSIUM 50 MG TABLET PO SCH (09:00)
[2019-12-31] MEDS: MUPIROCIN 2% OINT 22GM TOP SCH ×2 (09:01→17:07)
[2019-12-31] MEDS: AMLODIPINE 10MG TABLET PO SCH (09:01)
[2019-12-31] MEDS: TRAMADOL 50MG TABLET PO SCH (20:58)
[2019-12-31] MEDS ORDERED: LEVOFLOXACIN 500MG TABLET PO SCH (21:00)
[2019-12-31] MEDS: LORAZEPAM 2MG/ML CPJ IV PRN (23:44)
[2020-01-01 00:14] VITALS: BP 161/65
[2020-01-01] MEDS: METHYLPREDNISOLONE SOD SUCC 125 MG/2 ML VIAL IV SCH ×3 (01:19→13:32)
[2020-01-01] MEDS: IPRATROPIUM/ALBUTEROL 0.5-3(2.5)MG/3ML NEB NEB SCH ×2 (02:37→07:50)
[2020-01-01 04:00] VITALS: BP 138/84
[2020-01-01] MEDS: HYDRALAZINE HCL 50MG TABLET PO SCH (05:19)
[2020-01-01] MEDS: GABAPENTIN 400MG CAPSULE PO SCH ×2 (05:19→13:32)
[2020-01-01] MEDS: CELECOXIB 100MG CAPSULE PO SCH (08:12)
[2020-01-01] MEDS: AMLODIPINE 10MG TABLET PO SCH (08:12)
[2020-01-01] MEDS: LOSARTAN POTASSIUM 50 MG TABLET PO SCH (08:12)
[2020-01-01] MEDS: APIXABAN 5 MG TABLET PO SCH (08:13)
[2020-01-01] MEDS: HYDROCODONE/APAP 7.5/325MG 1 TAB TABLET PO PRN ×2 (08:21→14:08)
[2020-01-01] MEDS: MUPIROCIN 2% OINT 22GM TOP SCH (08:22)
[2020-01-01] MEDS ORDERED: FAMOTIDINE 20MG TABLET PO SCH (09:00)
[2020-01-01 12:08] VITALS: BP 155/80
[2020-01-01 13:20] VITALS: BP 155/80
[2020-01-01 14:08] VITALS: BP 155/80
== END 2020-01-01 14:22 | disposition home or self-care (01) | DRG 191 ==
LOC: ER 16:48 → EDBEDREQ 19:57 → EDBEDREQTM 19:57 → ENRESERV 21:12 → 6WST 22:50
PROVIDERS: ADMIT Hospitalist; ATTEND Hospitalist
DX: J44.1 Chronic obstructive pulmonary disease with (acute) exacerbation (principal); D68.59 Other primary thrombophilia; F32.9 Major depressive disorder, single episode, unspecified; G62.9 Polyneuropathy, unspecified; G89.4 Chronic pain syndrome; I10 Essential (primary) hypertension; Z20.828 Contact with and (suspected) exposure to other viral communicable diseases; Z79.01 Long term (current) use of anticoagulants; Z82.49 Family history of ischemic heart disease and other diseases of the circulatory system; Z86.14 Personal history of Methicillin resistant Staphylococcus aureus infection; Z86.73 Personal history of transient ischemic attack (TIA), and cerebral infarction without residual deficits; Z86.718 Personal history of other venous thrombosis and embolism; Z88.0 Allergy status to penicillin; Z79.2 Long term (current) use of antibiotics; Z79.891 Long term (current) use of opiate analgesic; Z79.899 Other long term (current) drug therapy; Z87.891 Personal history of nicotine dependence
CPT/HCPCS: 36415; 36600; 71045; 80053; 82375; 82805; 83880; 84484; 85025; 90686; 90732; 93005; 93970; 94644; 99285; J1170; J1650; J1885; J1956; J2060; J2930; J3490

== ENCOUNTER 2020-04-05 00:28 | Emergency (ER) | payer MEDICARE, OTHER ==
[~2020-04-05] VITALS: Ht 170.2 cm; Wt 100.0 kg
[~2020-04-05 00:28] MED LIST changes: -CELE100C PO; -GABA800T PO; -HYDR-3280 MT; +HYDR-4350 MT; -PANT40TA4 PO; +PANT40TA51 PO; -TRAM50TA3 PO
[2020-04-05] MEDS ORDERED: METHYLPREDNISOLONE SOD SUCC 125 MG/2 ML VIAL IV STA (01:19)
[2020-04-05] MEDS ORDERED: IPRATROPIUM BROMIDE (0.02%) 0.5MG/2.5ML NEB HHN STA (01:19)
[2020-04-05] MEDS ORDERED: MAGNESIUM 2 G PREMIX 50 ML IV ONE (01:30)
[2020-04-05] MEDS: ALBUTEROL (0.083%) 2.5MG/3ML NEB HHN SCH ×3 (01:32→03:29)
[2020-04-05 01:44] LABS: BASOPHILS % 0.4 % (0.0-2.0); EOSINOPHILS % 0.8 % (0.0-5.0); HEMATOCRIT. 43.7 % (42.0-52.0); HEMOGLOBIN. 14.5 g/dL (14.0-18.0); LYMPHOCYTES % 10.9 % (20.0-50.0); MEAN CORPUSCULAR HEMOGLOBIN 28.2 pg (28.0-32.0); MEAN CORPUSCULAR VOLUME 84.8 fL (80.0-94.0); MEAN PLATELET VOLUME 8.5 fl (7.4-10.4); MONOCYTES % 8.5 % (2.0-8.0); NEUTROPHILS % 79.4 % (40.0-76.0); PLATELET 202 x1000/uL (130-400); RED BLOOD CELL COUNT 5.15 mill/uL (4.7-6.1); RED CELL DISTRIBUTION WIDTH 15.4 % (11.6-14.6)
[2020-04-05 01:51] LABS: CHLORIDE 104 mEq/L (98-107)
[2020-04-05] MEDS ORDERED: CEFAZOLIN 1000MG PREMIX 50 ML IV ONE (03:00)
[2020-04-05] MEDS ORDERED: HYDROCODONE/ACETAMINOPHEN 5/325MG TABLET PO ONE (03:00)
[2020-04-05] MEDS ORDERED: LORAZEPAM 2MG/ML CPJ IV PRN (03:45)
[2020-04-05] MEDS ORDERED: ONDANSETRON HCL 4MG/2ML INJ IV PRN (03:45)
[2020-04-05] MEDS ORDERED: ENOXAPARIN 40MG/0.4ML SYR SUBCUT SCH (03:45)
[2020-04-05] MEDS ORDERED: DOCUSATE SODIUM 100MG CAPSULE PO PRN (03:45)
[2020-04-05] MEDS ORDERED: HYDROCODONE/APAP 7.5/325MG 1 TAB TABLET PO PRN (03:45)
[2020-04-05] MEDS ORDERED: ACETAMINOPHEN 325MG TABLET PO PRN (03:45)
[2020-04-05] MEDS ORDERED: CLONIDINE 0.1MG TABLET PO PRN (03:45)
[2020-04-05] MEDS ORDERED: IPRATROPIUM/ALBUTEROL 0.5-3(2.5)MG/3ML NEB NEB PRN (03:45)
[2020-04-05] MEDS ORDERED: MAGNESIUM/ALUMINUM HYDROXIDE/SIMETHICONE 30ML UDC PO PRN (03:45)
[2020-04-05 06:00] VITALS: BP 132/72
[2020-04-05] MEDS ORDERED: IPRATROPIUM/ALBUTEROL 0.5-3(2.5)MG/3ML NEB HHN SCH (06:00)
[2020-04-05] MEDS ORDERED: METHYLPREDNISOLONE SOD SUCC 125 MG/2 ML VIAL IV SCH (06:00)
[2020-04-05] MEDS ORDERED: AMLODIPINE 10MG TABLET PO SCH (06:00)
[2020-04-05] MEDS ORDERED: LEVOFLOXACIN 500MG PREMIX 100 ML IV SCH (06:00)
[2020-04-05] MEDS ORDERED: ENOXAPARIN 30MG/0.3ML SYR SUBCUT SCH (09:00)
== END 2020-04-05 07:29 | disposition left against medical advice (07) ==
LOC: ER 00:37 → CANBEDREQ 08:21
DX: J44.1 Chronic obstructive pulmonary disease with (acute) exacerbation (principal); L03.116 Cellulitis of left lower limb; I10 Essential (primary) hypertension; Z88.0 Allergy status to penicillin; Z79.899 Other long term (current) drug therapy; Z98.890 Other specified postprocedural states; Z86.73 Personal history of transient ischemic attack (TIA), and cerebral infarction without residual deficits
CPT/HCPCS: 36415; 71045; 80053; 83605; 83880; 84484; 85025; 87040; 93005; 94640; 96365; 96368; 96375; 99285; J0690; J2930; J3475

== ENCOUNTER 2020-07-21 02:35 | Emergency (ER) | payer MEDICARE, MEDICAID ==
[~2020-07-21] VITALS: Ht 170.2 cm; Wt 82.0 kg
[2020-07-21] MEDS ORDERED: METHYLPREDNISOLONE SOD SUCC 125 MG/2 ML VIAL IV STA (03:10)
[2020-07-21] MEDS ORDERED: IPRATROPIUM BROMIDE (0.02%) 0.5MG/2.5ML NEB HHN STA (03:10)
[2020-07-21] MEDS ORDERED: ALBUTEROL (0.083%) 2.5MG/3ML NEB HHN STA (03:10)
[2020-07-21] MEDS ORDERED: HYDROCODONE/ACETAMINOPHEN 10/325MG TABLET PO ONE (03:15)
[2020-07-21 03:26] LABS: BASOPHILS % 0.5 % (0.0-2.0); EOSINOPHILS % 3.1 % (0.0-5.0); HEMATOCRIT. 45.8 % (42.0-52.0); HEMOGLOBIN. 15.5 g/dL (14.0-18.0); LYMPHOCYTES % 21.2 % (20.0-50.0); MEAN CORPUSCULAR VOLUME 85.5 fL (80.0-94.0); MEAN PLATELET VOLUME 8.5 fl (7.4-10.4); MONOCYTES % 9.9 % (2.0-8.0); NEUTROPHILS % 65.3 % (40.0-76.0); PLATELET 202 x1000/uL (130-400); RED BLOOD CELL COUNT 5.36 mill/uL (4.7-6.1); RED CELL DISTRIBUTION WIDTH 14.4 % (11.6-14.6)
[2020-07-21 03:32] LABS: CHLORIDE 105 mEq/L (98-107)
[2020-07-21 05:00] VITALS: BP 149/89
== END 2020-07-21 06:46 | disposition left against medical advice (07) ==
LOC: ER 02:35
DX: J44.1 Chronic obstructive pulmonary disease with (acute) exacerbation (principal); I10 Essential (primary) hypertension; F14.10 Cocaine abuse, uncomplicated; Z98.890 Other specified postprocedural states; Z86.73 Personal history of transient ischemic attack (TIA), and cerebral infarction without residual deficits; Z79.899 Other long term (current) drug therapy; Z88.0 Allergy status to penicillin
CPT/HCPCS: 36415; 71045; 80053; 83880; 84484; 85025; 94640; 96374; 99285; J2930

== ENCOUNTER 2020-09-25 20:07 | Emergency (ER) | payer BC, MEDICAID ==
[~2020-09-25] VITALS: Ht 170.2 cm; Wt 85.0 kg
[2020-09-26 00:16] VITALS: BP 107/103
[2020-09-26] MEDS ORDERED: IPRATROPIUM BROMIDE (0.02%) 0.5MG/2.5ML NEB HHN STA (01:19)
[2020-09-26] MEDS ORDERED: ALBUTEROL (0.083%) 2.5MG/3ML NEB HHN STA (01:19)
== END 2020-09-26 02:15 | disposition home or self-care (01) ==
LOC: ER 20:19
DX: R06.02 Shortness of breath (principal); J44.9 Chronic obstructive pulmonary disease, unspecified; I10 Essential (primary) hypertension; F32.9 Major depressive disorder, single episode, unspecified; M19.90 Unspecified osteoarthritis, unspecified site; Z88.0 Allergy status to penicillin; Z20.822 Contact with and (suspected) exposure to COVID-19; Z98.890 Other specified postprocedural states
CPT/HCPCS: 87426; 94640; 99283

== ENCOUNTER 2020-10-08 19:17 | Inpatient (IN) | payer MEDICARE, MEDICAID ==
[~2020-10-08] VITALS: Ht 170.2 cm; Wt 92.1 kg
[2020-10-08 20:51] LABS: BASOPHILS % 0.7 % (0.0-2.0); EOSINOPHILS % 3.7 % (0.0-5.0); HEMATOCRIT. 43.7 % (42.0-52.0); HEMOGLOBIN. 14.9 g/dL (14.0-18.0); LYMPHOCYTES % 22.1 % (20.0-50.0); MEAN CORPUSCULAR HEMOGLOBIN 28.9 pg (28.0-32.0); MEAN CORPUSCULAR VOLUME 84.8 fL (80.0-94.0); MONOCYTES % 8.4 % (2.0-8.0); NEUTROPHILS % 65.1 % (40.0-76.0); PLATELET 212 x1000/uL (130-400); RED BLOOD CELL COUNT 5.16 mill/uL (4.7-6.1); RED CELL DISTRIBUTION WIDTH 15.1 % (11.6-14.6)
[2020-10-08 20:58] LABS: CHLORIDE 108 mEq/L (98-107)
[2020-10-08 21:04] LABS: ETHANOL BLOOD < 10 mg/dL
[2020-10-08 21:23] LABS: *BARBITURATES SCREEN URINE NEGATIVE (NEGATIVE); *BENZODIAZEPINES SCREEN URINE NEGATIVE (NEGATIVE); *COCAINE SCREEN URINE PRESUMTIVE POSITIVE (NEGATIVE); CANNABINOID URINE SCREEN NEGATIVE (NEGATIVE); METHADONE URINE SCREEN NEGATIVE (NEGATIVE); OPIATES URINE SCREEN NEGATIVE (NEGATIVE); PHENCYCLIDINE URINE SCREEN NEGATIVE (NEGATIVE)
[2020-10-08 21:24] LABS: *AMPHETAMINES SCREEN URINE PRESUMTIVE POSITIVE (NEGATIVE)
[2020-10-08] MEDS ORDERED: ALBUTEROL (0.5%) 2.5MG/0.5ML NEB HHN NR ×3 (22:00→22:40)
[2020-10-08] MEDS ORDERED: METHYLPREDNISOLONE SOD SUCC 125 MG/2 ML VIAL IV NR (22:00)
[2020-10-08] MEDS ORDERED: LORAZEPAM 2MG/ML CPJ IV PRN (22:45)
[2020-10-08] MEDS ORDERED: MAGNESIUM/ALUMINUM HYDROXIDE/SIMETHICONE 30ML UDC PO PRN (22:45)
[2020-10-08] MEDS ORDERED: HYDROCODONE/ACETAMINOPHEN 5/325MG TABLET PO PRN (22:45)
[2020-10-08] MEDS ORDERED: MORPHINE SULFATE 2 MG/ML CPJ (NOT FOR IM USE) IV PRN (22:45)
[2020-10-08] MEDS ORDERED: GUAIFENESIN 200MG/10ML SUGAR FREE UDC PO PRN (22:45)
[2020-10-08] MEDS ORDERED: IPRATROPIUM/ALBUTEROL 0.5-3(2.5)MG/3ML NEB HHN PRN (22:45)
[2020-10-08] MEDS ORDERED: ONDANSETRON HCL 4MG/2ML INJ IV PRN (22:45)
[2020-10-08] MEDS ORDERED: ACETAMINOPHEN 325MG TABLET PO PRN (22:45)
[2020-10-08] MEDS ORDERED: DOCUSATE SODIUM 100MG CAPSULE PO PRN (22:45)
[2020-10-08] MEDS ORDERED: HYDRALAZINE 20MG/ML VIAL IV PRN (22:45)
[2020-10-08] MEDS ORDERED: DIPHENHYDRAMINE 50MG/ML VIAL IV PRN (22:45)
[2020-10-08] MEDS ORDERED: KETOROLAC 15MG/ML VIAL IV PRN (23:00)
[2020-10-08] MEDS ORDERED: AZITHROMYCIN 500 MG in DEXT 5% WATER 250 ML IV SCH (23:30)
[2020-10-09] MEDS: ENOXAPARIN 40MG/0.4ML SYR SUBCUT SCH ×2 (00:05→23:18)
[2020-10-09 04:39] LABS: HEMATOCRIT. 48.7 % (42.0-52.0); HEMOGLOBIN. 16.1 g/dL (14.0-18.0); MEAN CORPUSCULAR HEMOGLOBIN 28.6 pg (28.0-32.0); MEAN CORPUSCULAR VOLUME 86.5 fL (80.0-94.0); PLATELET 194 x1000/uL (130-400); RED BLOOD CELL COUNT 5.63 mill/uL (4.7-6.1)
[2020-10-09 04:46] LABS: CHLORIDE 107 mEq/L (98-107)
[2020-10-09 05:30] LABS: PLATELET ESTIMATE NORMAL
[2020-10-09] MEDS: SODIUM CHLORIDE 0.9% INJ 3ML FLUSH IVF SCH ×3 (06:07→23:17)
[2020-10-09] MEDS: METHYLPREDNISOLONE SOD SUCC 125 MG/2 ML VIAL IV SCH ×3 (06:35→23:17)
[2020-10-09] MEDS: CLONIDINE 0.1MG TABLET PO PRN ×2 (11:41→17:01)
[2020-10-09 13:43] VITALS: BP 143/96
[2020-10-09 16:00] VITALS: BP 175/93
[2020-10-09] MEDS: INDOMETHACIN 25MG CAPSULE PO SCH (17:01)
[2020-10-09] MEDS: HYDROCODONE/APAP 7.5/325MG 1 TAB TABLET PO PRN ×2 (17:02→23:23)
[2020-10-09] MEDS ORDERED: LISI10TA26 MT (17:24)
[2020-10-09] MEDS ORDERED: PNEUMOCOCCAL 23-VAL P-SAC VAC 0.5 ML IM ONE (18:00)
[2020-10-09] MEDS: AZITHROMYCIN 500 MG in DEXT 5% WATER 250 ML IV SCH (18:43)
[2020-10-09 20:00] VITALS: BP 149/89
[2020-10-09] MEDS: COLCHICINE 0.6MG TABLET PO SCH (23:17)
[2020-10-10] VITALS: BP 151/82
[2020-10-10] MEDS ORDERED: *PATIENT'S OWN MEDICATION STORAGE XX SCH (00:30)
[2020-10-10] MEDS: IPRATROPIUM/ALBUTEROL 0.5-3(2.5)MG/3ML NEB HHN PRN ×2 (00:56→11:36)
[2020-10-10 04:00] VITALS: BP 118/59
[2020-10-10] MEDS: SODIUM CHLORIDE 0.9% INJ 3ML FLUSH IVF SCH ×3 (06:39→21:14)
[2020-10-10] MEDS: METHYLPREDNISOLONE SOD SUCC 125 MG/2 ML VIAL IV SCH (06:40)
[2020-10-10] MEDS: INDOMETHACIN 25MG CAPSULE PO SCH ×3 (08:27→17:25)
[2020-10-10] MEDS ORDERED: COLCHICINE 0.6MG TABLET PO SCH (09:00)
[2020-10-10 12:00] VITALS: BP 171/96
[2020-10-10] MEDS: HYDROCODONE/APAP 7.5/325MG 1 TAB TABLET PO PRN ×2 (12:12→23:46)
[2020-10-10] MEDS: BACLOFEN 10MG TABLET PO SCH ×2 (14:12→21:14)
[2020-10-10 16:30] VITALS: BP 146/72
[2020-10-10] MEDS: AZITHROMYCIN 500 MG in DEXT 5% WATER 250 ML IV SCH (17:25)
[2020-10-10] MEDS: PREDNISONE 20MG TABLET PO SCH (17:25)
[2020-10-10 20:00] VITALS: BP 162/77
[2020-10-10] MEDS: COLCHICINE 0.6MG TABLET PO SCH (21:14)
[2020-10-10] MEDS: ENOXAPARIN 40MG/0.4ML SYR SUBCUT SCH (21:14)
[2020-10-11] VITALS (7 sets, daily range): BP systolic 141–182; BP diastolic 61–109
[2020-10-11] MEDS: CLONIDINE 0.1MG TABLET PO PRN ×3 (04:56→12:09)
[2020-10-11] MEDS: BACLOFEN 10MG TABLET PO SCH ×2 (05:06→13:57)
[2020-10-11] MEDS: SODIUM CHLORIDE 0.9% INJ 3ML FLUSH IVF SCH ×2 (05:06→13:57)
[2020-10-11] MEDS: PREDNISONE 20MG TABLET PO SCH (08:53)
[2020-10-11] MEDS: INDOMETHACIN 25MG CAPSULE PO SCH ×2 (08:53→12:19)
[2020-10-11] MEDS ORDERED: AZITHROMYCIN 500 MG TABLET PO SCH (11:00)
[2020-10-11] MEDS: HYDROCODONE/APAP 7.5/325MG 1 TAB TABLET PO PRN (12:21)
[2020-10-11] MEDS ORDERED: ENOXAPARIN 30MG/0.3ML SYR SUBCUT SCH (21:00)
== END 2020-10-11 17:13 | disposition home or self-care (01) | DRG 189 ==
LOC: ER 19:17 → 7EST 22:42 → ENRESERV 10-09 11:23
PROVIDERS: ADMIT Internal Medicine; ATTEND Hospitalist
DX: J96.20 Acute and chronic respiratory failure, unspecified whether with hypoxia or hypercapnia (principal); J44.1 Chronic obstructive pulmonary disease with (acute) exacerbation; F11.20 Opioid dependence, uncomplicated; M19.90 Unspecified osteoarthritis, unspecified site; M10.9 Gout, unspecified; I10 Essential (primary) hypertension; G47.00 Insomnia, unspecified; F32.9 Major depressive disorder, single episode, unspecified; F14.10 Cocaine abuse, uncomplicated; Z20.822 Contact with and (suspected) exposure to COVID-19; F17.210 Nicotine dependence, cigarettes, uncomplicated; F15.10 Other stimulant abuse, uncomplicated; Z59.0 Homelessness; Z88.0 Allergy status to penicillin; Z79.899 Other long term (current) drug therapy; Z79.2 Long term (current) use of antibiotics; Z91.19 Patient's noncompliance with other medical treatment and regimen
CPT/HCPCS: 36415; 71045; 80053; 80305; 80320; 83880; 84443; 84484; 84550; 85025; 87426; 90732; 93005; 93970; 94640; 99285; J0360; J0456; J1650; J1885; J2060; J2930; J7060; J7512; G0480

== ENCOUNTER 2020-12-02 22:39 | Inpatient (IN) | payer MEDICARE, MEDICAID ==
[~2020-12-02] VITALS: Ht 170.2 cm; Wt 83.2 kg
[2020-12-02] MEDS: ALBUTEROL (0.083%) 2.5MG/3ML NEB HHN SCH ×2 (00:40→01:06)
[~2020-12-02 22:39] MED LIST changes: +LISI10TA26 MT
[2020-12-02] MEDS ORDERED: MAGNESIUM 2 G PREMIX 50 ML IV ONE (22:45)
[2020-12-02] MEDS ORDERED: METHYLPREDNISOLONE SOD SUCC 125 MG/2 ML VIAL IV STA (22:45)
[2020-12-02] MEDS ORDERED: IPRATROPIUM BROMIDE (0.02%) 0.5MG/2.5ML NEB HHN STA (22:45)
[2020-12-02 23:34] LABS: BASOPHILS % 0.3 % (0.0-2.0); EOSINOPHILS % 4.8 % (0.0-5.0); HEMATOCRIT. 43.3 % (42.0-52.0); LYMPHOCYTES % 25.1 % (20.0-50.0); MEAN CORPUSCULAR HEMOGLOBIN 29.7 pg (28.0-32.0); MEAN CORPUSCULAR VOLUME 85.8 fL (80.0-94.0); MEAN PLATELET VOLUME 8.1 fl (7.4-10.4); MONOCYTES % 8.9 % (2.0-8.0); NEUTROPHILS % 60.9 % (40.0-76.0); PLATELET 205 x1000/uL (130-400); RED BLOOD CELL COUNT 5.04 mill/uL (4.7-6.1)
[2020-12-02 23:37] LABS: CHLORIDE 107 mEq/L (98-107)
[2020-12-03] MEDS: ALBUTEROL (0.083%) 2.5MG/3ML NEB HHN SCH (01:41)
[2020-12-03] MEDS ORDERED: IPRATROPIUM/ALBUTEROL 0.5-3(2.5)MG/3ML NEB NEB PRN (07:45)
[2020-12-03] MEDS ORDERED: MAGNESIUM/ALUMINUM HYDROXIDE/SIMETHICONE 30ML UDC PO PRN (07:45)
[2020-12-03] MEDS ORDERED: NITROGLYCERIN 0.4MG TABLET SL SL PRN (07:45)
[2020-12-03] MEDS ORDERED: ACETAMINOPHEN 325MG TABLET PO PRN ×2 (07:45)
[2020-12-03] MEDS ORDERED: DOCUSATE SODIUM 100MG CAPSULE PO PRN (07:45)
[2020-12-03] MEDS ORDERED: GUAIFENESIN 200MG/10ML SUGAR FREE UDC PO PRN (07:45)
[2020-12-03] MEDS ORDERED: ENOXAPARIN 40MG/0.4ML SYR SUBCUT SCH (07:45)
[2020-12-03 09:03] LABS: TOTAL IRON BINDING CAPACITY 279 ug/dL (250-450)
[2020-12-03 09:21] LABS: FOLIC ACID (FOLATE) SERUM 6.8 ng/mL (>5.38)
[2020-12-03] MEDS ORDERED: LEVOFLOXACIN 500MG PREMIX 100 ML IV SCH (10:00)
[2020-12-03] MEDS: KETOROLAC 15MG/ML VIAL IV PRN (11:06)
[2020-12-03] MEDS: FAMOTIDINE 20MG TABLET PO SCH ×2 (11:06→21:29)
[2020-12-03] MEDS: ZINC SULFATE 220 MG ( 50 ) CAPSULE PO SCH (11:06)
[2020-12-03] MEDS: CHOLECALCIFEROL (D3) 1000 UNIT TABLET PO SCH (11:06)
[2020-12-03 12:00] VITALS: BP 156/91
[2020-12-03] MEDS: DILTIAZEM HCL 60MG TABLET PO SCH ×2 (13:52→17:29)
[2020-12-03] MEDS: METHYLPREDNISOLONE SOD SUCC 125 MG/2 ML VIAL IV SCH ×2 (13:52→21:30)
[2020-12-03] MEDS: CLONIDINE 0.1MG TABLET PO PRN (15:42)
[2020-12-03 16:00] VITALS: BP 168/99
[2020-12-03] MEDS: APIXABAN 5 MG TABLET PO SCH (17:29)
[2020-12-03 18:24] LABS: CREATINE KINASE 138 IU/L (39-308)
[2020-12-03 18:25] LABS: CREATINE KINASE MB FRACTION 4.9 ng/mL (0.5-3.6)
[2020-12-03 18:31] VITALS: BP 138/78
[2020-12-03 20:00] VITALS: BP 133/88
[2020-12-03] MEDS: ZOLPIDEM TARTRATE 5MG TABLET PO PRN (21:41)
[2020-12-03 23:21] LABS: CREATINE KINASE 117 IU/L (39-308)
[2020-12-03 23:22] LABS: CREATINE KINASE MB FRACTION 4.3 ng/mL (0.5-3.6)
[2020-12-03 23:29] LABS: *AMPHETAMINES SCREEN URINE NEGATIVE (NEGATIVE); *BARBITURATES SCREEN URINE NEGATIVE (NEGATIVE); *BENZODIAZEPINES SCREEN URINE NEGATIVE (NEGATIVE); *COCAINE SCREEN URINE PRESUMTIVE POSITIVE (NEGATIVE); METHADONE URINE SCREEN NEGATIVE (NEGATIVE)
[2020-12-03 23:30] LABS: CANNABINOID URINE SCREEN NEGATIVE (NEGATIVE); OPIATES URINE SCREEN PRESUMTIVE POSITIVE (NEGATIVE); PHENCYCLIDINE URINE SCREEN NEGATIVE (NEGATIVE)
[2020-12-04] VITALS: BP 153/75
[2020-12-04] MEDS: IPRATROPIUM/ALBUTEROL 0.5-3(2.5)MG/3ML NEB HHN SCH ×4 (00:18→15:08)
[2020-12-04] MEDS: APIXABAN 5 MG TABLET PO SCH ×2 (06:01→17:08)
[2020-12-04] MEDS: DILTIAZEM HCL 60MG TABLET PO SCH ×4 (06:04→17:08)
[2020-12-04] MEDS: METHYLPREDNISOLONE SOD SUCC 125 MG/2 ML VIAL IV SCH ×3 (06:05→20:25)
[2020-12-04 07:16] LABS: CHLORIDE 109 mEq/L (98-107)
[2020-12-04 07:20] LABS: HEMATOCRIT. 43.2 % (42.0-52.0); HEMOGLOBIN. 14.4 g/dL (14.0-18.0); MEAN CORPUSCULAR HEMOGLOBIN 28.9 pg (28.0-32.0); MEAN CORPUSCULAR VOLUME 86.7 fL (80.0-94.0); MEAN PLATELET VOLUME 8.9 fl (7.4-10.4); PLATELET 252 x1000/uL (130-400); RED BLOOD CELL COUNT 4.99 mill/uL (4.7-6.1)
[2020-12-04 07:22] LABS: PHOSPHORUS 2.8 mg/dL (2.5-4.9)
[2020-12-04 08:00] VITALS: BP 173/86
[2020-12-04] MEDS: FAMOTIDINE 20MG TABLET PO SCH ×2 (09:04→20:25)
[2020-12-04] MEDS: CHOLECALCIFEROL (D3) 1000 UNIT TABLET PO SCH (09:04)
[2020-12-04] MEDS: ZINC SULFATE 220 MG ( 50 ) CAPSULE PO SCH (09:04)
[2020-12-04] MEDS ORDERED: NALOXONE HCL 0.4MG/ML VIAL IV PRN (10:30)
[2020-12-04] MEDS: HYDROCODONE/ACETAMINOPHEN 10/325MG TABLET PO PRN ×3 (11:52→20:25)
[2020-12-04 12:00] VITALS: BP 150/74
[2020-12-04 14:34] LABS: PLATELET ESTIMATE NORMAL
[2020-12-04] MEDS: LEVOFLOXACIN 500MG PREMIX 100 ML IV SCH (14:46)
[2020-12-04 16:00] VITALS: BP 143/78
[2020-12-04 20:00] VITALS: BP 138/87
[2020-12-04] MEDS: COLCHICINE 0.6MG TABLET PO SCH (20:25)
[2020-12-04] MEDS: ZOLPIDEM TARTRATE 5MG TABLET PO PRN (20:30)
[2020-12-05] VITALS: BP 163/88
[2020-12-05] MEDS: LORAZEPAM 0.5MG TABLET PO PRN ×2 (00:37→05:36)
[2020-12-05] MEDS: DILTIAZEM HCL 60MG TABLET PO SCH ×4 (00:38→17:34)
[2020-12-05] MEDS: HYDROCODONE/ACETAMINOPHEN 10/325MG TABLET PO PRN ×4 (00:38→20:45)
[2020-12-05 04:00] VITALS: BP 147/78
[2020-12-05] MEDS: METHYLPREDNISOLONE SOD SUCC 125 MG/2 ML VIAL IV SCH ×3 (05:37→22:21)
[2020-12-05] MEDS: APIXABAN 5 MG TABLET PO SCH ×2 (05:38→17:34)
[2020-12-05] MEDS: IPRATROPIUM/ALBUTEROL 0.5-3(2.5)MG/3ML NEB HHN SCH ×3 (05:58→20:42)
[2020-12-05 08:00] VITALS: BP 167/82
[2020-12-05] MEDS: ZINC SULFATE 220 MG ( 50 ) CAPSULE PO SCH (08:47)
[2020-12-05] MEDS: FAMOTIDINE 20MG TABLET PO SCH ×2 (08:47→20:40)
[2020-12-05] MEDS: CHOLECALCIFEROL (D3) 1000 UNIT TABLET PO SCH (08:47)
[2020-12-05] MEDS: COLCHICINE 0.6MG TABLET PO SCH ×2 (08:47→20:40)
[2020-12-05] MEDS: KETOROLAC 15MG/ML VIAL IV PRN ×2 (08:56→17:35)
[2020-12-05 12:00] VITALS: BP 158/80
[2020-12-05] MEDS: LEVOFLOXACIN 500MG PREMIX 100 ML IV SCH (12:00)
[2020-12-05 20:00] VITALS: BP 180/98
[2020-12-06] VITALS: BP 150/107
[2020-12-06] MEDS: DILTIAZEM HCL 60MG TABLET PO SCH ×4 (00:24→18:14)
[2020-12-06] MEDS: ZOLPIDEM TARTRATE 5MG TABLET PO PRN (01:19)
[2020-12-06] MEDS: HYDROCODONE/ACETAMINOPHEN 10/325MG TABLET PO PRN ×2 (02:45→09:01)
[2020-12-06 04:00] VITALS: BP 171/105
[2020-12-06] MEDS: KETOROLAC 15MG/ML VIAL IV PRN (05:23)
[2020-12-06] MEDS: METHYLPREDNISOLONE SOD SUCC 125 MG/2 ML VIAL IV SCH ×3 (05:28→22:01)
[2020-12-06] MEDS: APIXABAN 5 MG TABLET PO SCH ×2 (05:29→18:15)
[2020-12-06 08:00] VITALS: BP 184/96
[2020-12-06] MEDS: IPRATROPIUM/ALBUTEROL 0.5-3(2.5)MG/3ML NEB HHN SCH ×4 (08:10→21:40)
[2020-12-06] MEDS: CHOLECALCIFEROL (D3) 1000 UNIT TABLET PO SCH (08:54)
[2020-12-06] MEDS: COLCHICINE 0.6MG TABLET PO SCH ×2 (08:54→22:01)
[2020-12-06] MEDS: ZINC SULFATE 220 MG ( 50 ) CAPSULE PO SCH (08:55)
[2020-12-06] MEDS: CLONIDINE 0.1MG TABLET PO PRN (08:55)
[2020-12-06] MEDS: FAMOTIDINE 20MG TABLET PO SCH ×2 (08:55→22:01)
[2020-12-06] MEDS: LORAZEPAM 0.5MG TABLET PO PRN ×2 (09:01→22:01)
[2020-12-06 12:00] VITALS: BP 165/87
[2020-12-06] MEDS: LEVOFLOXACIN 500MG PREMIX 100 ML IV SCH (13:25)
[2020-12-06 16:00] VITALS: BP 145/75
[2020-12-06 20:00] VITALS: BP 159/84
[2020-12-06] MEDS: ONDANSETRON HCL 4MG/2ML INJ IV PRN (22:01)
[2020-12-07] VITALS: BP 141/76
[2020-12-07] MEDS: ZOLPIDEM TARTRATE 5MG TABLET PO PRN ×2 (00:49→20:46)
[2020-12-07] MEDS: DILTIAZEM HCL 60MG TABLET PO SCH ×5 (00:49→23:56)
[2020-12-07] MEDS: HYDROCODONE/ACETAMINOPHEN 10/325MG TABLET PO PRN ×3 (01:32→12:57)
[2020-12-07] MEDS: IPRATROPIUM/ALBUTEROL 0.5-3(2.5)MG/3ML NEB HHN SCH ×5 (01:45→21:10)
[2020-12-07 04:00] VITALS: BP 126/61
[2020-12-07] MEDS: APIXABAN 5 MG TABLET PO SCH ×2 (05:47→17:35)
[2020-12-07] MEDS: METHYLPREDNISOLONE SOD SUCC 125 MG/2 ML VIAL IV SCH (05:48)
[2020-12-07 08:00] VITALS: BP 152/79
[2020-12-07] MEDS: CHOLECALCIFEROL (D3) 1000 UNIT TABLET PO SCH (08:41)
[2020-12-07] MEDS: ZINC SULFATE 220 MG ( 50 ) CAPSULE PO SCH (08:41)
[2020-12-07] MEDS: COLCHICINE 0.6MG TABLET PO SCH ×2 (08:41→20:45)
[2020-12-07] MEDS: FAMOTIDINE 20MG TABLET PO SCH ×2 (08:41→20:45)
[2020-12-07 12:00] VITALS: BP 149/81
[2020-12-07] MEDS: LEVOFLOXACIN 500MG PREMIX 100 ML IV SCH (12:57)
[2020-12-07 16:00] VITALS: BP 159/85
[2020-12-07] MEDS: ONDANSETRON HCL 4MG/2ML INJ IV PRN ×2 (18:06→20:45)
[2020-12-07 20:00] VITALS: BP 146/75
[2020-12-07] MEDS: METHYLPREDNISOLONE SOD SUCC 40 MG/ML VIAL IV SCH (20:45)
[2020-12-07] MEDS: LORAZEPAM 0.5MG TABLET PO PRN (20:46)
[2020-12-08] VITALS: BP 127/55
[2020-12-08] MEDS: IPRATROPIUM/ALBUTEROL 0.5-3(2.5)MG/3ML NEB HHN SCH ×6 (01:15→21:22)
[2020-12-08 04:00] VITALS: BP 137/73
[2020-12-08] MEDS: APIXABAN 5 MG TABLET PO SCH ×2 (05:06→17:54)
[2020-12-08] MEDS: DILTIAZEM HCL 60MG TABLET PO SCH ×3 (05:07→17:55)
[2020-12-08] MEDS: HYDROCODONE/ACETAMINOPHEN 10/325MG TABLET PO PRN ×2 (05:07→20:25)
[2020-12-08] MEDS: METHYLPREDNISOLONE SOD SUCC 40 MG/ML VIAL IV SCH ×2 (08:55→20:24)
[2020-12-08] MEDS: COLCHICINE 0.6MG TABLET PO SCH ×2 (08:56→20:23)
[2020-12-08] MEDS: CHOLECALCIFEROL (D3) 1000 UNIT TABLET PO SCH (08:56)
[2020-12-08] MEDS: FAMOTIDINE 20MG TABLET PO SCH ×2 (08:56→20:24)
[2020-12-08] MEDS: ZINC SULFATE 220 MG ( 50 ) CAPSULE PO SCH (08:56)
[2020-12-08 12:00] VITALS: BP 172/97
[2020-12-08] MEDS: LEVOFLOXACIN 500MG PREMIX 100 ML IV SCH (12:59)
[2020-12-08] MEDS: CLONIDINE 0.1MG TABLET PO PRN ×2 (13:04→20:23)
[2020-12-08 16:00] VITALS: BP 160/84
[2020-12-08] MEDS: ZOLPIDEM TARTRATE 5MG TABLET PO PRN (20:23)
[2020-12-08] MEDS: ONDANSETRON HCL 4MG/2ML INJ IV PRN (20:24)
[2020-12-08 20:25] VITALS: BP 160/84
== END 2020-12-08 22:00 | disposition left against medical advice (07) | DRG 189 ==
LOC: ER 22:39 → 8WST 12-03 04:34 → EDBEDREQ 12-03 04:37 → EDBEDREQTM 12-03 04:37 → ENRESERV 12-03 07:38 → MICUSO 12-03 08:31 → 8WST 12-03 12:24
PROVIDERS: ADMIT Hospitalist; ATTEND Hospitalist
DX: J96.01 Acute respiratory failure with hypoxia (principal); J44.1 Chronic obstructive pulmonary disease with (acute) exacerbation; F11.20 Opioid dependence, uncomplicated; F12.10 Cannabis abuse, uncomplicated; F17.210 Nicotine dependence, cigarettes, uncomplicated; I10 Essential (primary) hypertension; M10.9 Gout, unspecified; M19.90 Unspecified osteoarthritis, unspecified site; F32.A Depression, unspecified; Z91.14 Patient's other noncompliance with medication regimen; Z88.0 Allergy status to penicillin; Z79.899 Other long term (current) drug therapy; Z79.01 Long term (current) use of anticoagulants; Z82.49 Family history of ischemic heart disease and other diseases of the circulatory system
CPT/HCPCS: 36415; 71045; 80053; 80305; 80320; 82550; 82553; 82607; 82746; 83540; 83550; 83605; 83735; 83880; 84100; 84484; 85025; 93005; 93306; 93970; 94640; 99291; C1893; J1885; J1956; J2405; J2920; J2930; J3475; G0480

== ENCOUNTER 2020-12-17 09:30 | Emergency (ER) | payer MEDICARE, MEDICAID ==
[~2020-12-17] VITALS: Ht 175.3 cm; Wt 82.0 kg
[2020-12-17] MEDS ORDERED: ALBUTEROL (0.083%) 2.5MG/3ML NEB HHN NR (10:42)
[2020-12-17] MEDS ORDERED: IPRATROPIUM BROMIDE (0.02%) 0.5MG/2.5ML NEB HHN NR (10:42)
[2020-12-17] MEDS ORDERED: BACITRACIN ZINC OINT UDPKT TOP NR (10:45)
[2020-12-17] MEDS ORDERED: ACETAMINOPHEN 325MG TABLET PO NR (10:45)
[2020-12-17] MEDS ORDERED: CLINDAMYCIN 600 MG in DEXTROSE 5% WATER 50 ML IV ONE (10:45)
[2020-12-17] MEDS ORDERED: LIDOCAINE HCL/EPINEPHRINE 1%-EPI 1:100,000 20 ML VIAL INFIL NR (10:45)
[2020-12-17] MEDS ORDERED: CLINDAMYCIN 600MG PREMIX 50 ML IV NR (11:00)
[2020-12-17] MEDS ORDERED: KETOROLAC 30MG/ML VIAL IV STA (12:49)
[2020-12-17] MEDS ORDERED: SULF1TAB48 PO (12:59)
[2020-12-17] MEDS ORDERED: ALBU18HF2 IH (12:59)
[2020-12-17] MEDS ORDERED: BECL10.62 INH (13:00)
[2020-12-17] MEDS ORDERED: HYDR-4001 PO (13:00)
[2020-12-17] MEDS ORDERED: CLIN300C12 MT (13:00)
[2020-12-17 13:47] VITALS: BP 157/83
== END 2020-12-17 13:48 | disposition home or self-care (01) ==
LOC: ER 09:30
DX: L02.416 Cutaneous abscess of left lower limb (principal); J44.9 Chronic obstructive pulmonary disease, unspecified; Z59.00 Homelessness unspecified
CPT/HCPCS: 94640; 96365; 96375; 99284; J1885; J3490

== ENCOUNTER 2020-12-31 19:33 | Emergency (ER) | payer MEDICARE, MEDICAID ==
[~2020-12-31] VITALS: Ht 172.7 cm; Wt 75.0 kg
[~2020-12-31 19:33] MED LIST changes: +ALBU18HF2 IH; +CLIN300C12 MT; +HYDR-4001 PO; +SULF1TAB48 PO
[2020-12-31 19:39] VITALS: BP 152/80
[2020-12-31] MEDS ORDERED: IPRATROPIUM BROMIDE (0.02%) 0.5MG/2.5ML NEB HHN STA (22:50)
[2020-12-31] MEDS ORDERED: ALBUTEROL (0.083%) 2.5MG/3ML NEB HHN STA (22:50)
[2020-12-31] MEDS ORDERED: CEFTRIAXONE 1 G PREMIX 50 ML IV ONE (23:00)
[2020-12-31] MEDS ORDERED: DOXYCYCLINE 100MG in DEXTROSE 5% WATER 100ML IV SCH (23:00)
[2020-12-31] MEDS ORDERED: DOXYCYCLINE HYCLATE 100 MG/VIAL IV SCH (23:00)
[2021-01-01 00:46] LABS: BASOPHILS % 0.2 % (0.0-2.0); EOSINOPHILS % 0.5 % (0.0-5.0); HEMATOCRIT. 40.9 % (42.0-52.0); HEMOGLOBIN. 13.5 g/dL (14.0-18.0); LYMPHOCYTES % 13.5 % (20.0-50.0); MEAN CORPUSCULAR HEMOGLOBIN 28.4 pg (28.0-32.0); MONOCYTES % 12.4 % (2.0-8.0); NEUTROPHILS % 73.4 % (40.0-76.0); PLATELET 297 x1000/uL (130-400); RED BLOOD CELL COUNT 4.76 mill/uL (4.7-6.1); RED CELL DISTRIBUTION WIDTH 14.7 % (11.6-14.6)
[2021-01-01 00:50] LABS: CHLORIDE 103 mEq/L (98-107)
== END 2021-01-01 02:25 | disposition home or self-care (01) ==
LOC: ER 19:33
DX: L03.114 Cellulitis of left upper limb (principal); J44.9 Chronic obstructive pulmonary disease, unspecified; F32.9 Major depressive disorder, single episode, unspecified; I10 Essential (primary) hypertension; Z88.0 Allergy status to penicillin
CPT/HCPCS: 36415; 71045; 80053; 83605; 83880; 84484; 85025; 85651; 86140; 96365; 99284; J0696; J3490; J7060

== ENCOUNTER 2021-07-24 11:50 | Emergency (ER) | payer MEDICARE, MEDICAID ==
[~2021-07-24] VITALS: Ht 175.3 cm; Wt 79.0 kg
[~2021-07-24 11:50] MED LIST changes: +CLIN-194 MT; -CLIN300C12 MT
[2021-07-24 11:58] VITALS: BP 158/92
[2021-07-24] MEDS ORDERED: PREDNISONE 20MG TABLET PO NR (12:51)
[2021-07-24] MEDS ORDERED: IPRATROPIUM BROMIDE (0.02%) 0.5MG/2.5ML NEB HHN NR (12:51)
[2021-07-24] MEDS ORDERED: ALBUTEROL (0.083%) 2.5MG/3ML NEB HHN NR (12:51)
[2021-07-24 15:35] LABS: BASOPHILS % 0.9 % (0.0-2.0); EOSINOPHILS % 8.9 % (0.0-5.0); HEMATOCRIT. 45.9 % (42.0-52.0); HEMOGLOBIN. 15.3 g/dL (14.0-18.0); LYMPHOCYTES % 17.3 % (20.0-50.0); MEAN CORPUSCULAR HEMOGLOBIN 28.5 pg (28.0-32.0); MEAN CORPUSCULAR VOLUME 85.7 fL (80.0-94.0); MEAN PLATELET VOLUME 8.4 fl (7.4-10.4); MONOCYTES % 9.3 % (2.0-8.0); NEUTROPHILS % 63.6 % (40.0-76.0); PLATELET 205 x1000/uL (130-400); RED BLOOD CELL COUNT 5.36 mill/uL (4.7-6.1); RED CELL DISTRIBUTION WIDTH 14.3 % (11.6-14.6)
[2021-07-24 15:40] LABS: CHLORIDE 107 mEq/L (98-107)
== END 2021-07-24 16:24 | disposition left against medical advice (07) ==
LOC: ER 11:50
DX: R07.9 Chest pain, unspecified (principal); J44.9 Chronic obstructive pulmonary disease, unspecified; F32.9 Major depressive disorder, single episode, unspecified; I10 Essential (primary) hypertension; Z88.0 Allergy status to penicillin; Z59.00 Homelessness unspecified
CPT/HCPCS: 36415; 71045; 80048; 84484; 85025; 93005; 94640; 99285

== ENCOUNTER 2022-04-06 01:35 | Emergency (ER) | payer MEDICARE, MEDICAID ==
[~2022-04-06] VITALS: Ht 170.2 cm; Wt 73.0 kg
[~2022-04-06 01:35] MED LIST changes: -APIX5TAB MT; +ASPI-1497 PO; +ATOR-2 PO; -BECL10.62 INH; -CLIN-194 MT; +CLOP-31 PO; +GABA-532 PO; -HYDR-4001 PO; -OLME1TAB18 PO; +RISP1 PO; -SULF1TAB47 MT; -SULF1TAB48 PO; -TIOT18CA3 IH
[2022-04-06 01:52] VITALS: BP 159/92
[2022-04-06 11:21] LABS: BASOPHILS % 0.9 % (0.0-2.0); EOSINOPHILS % 7.2 % (0.0-5.0); HEMATOCRIT. 43.4 % (42.0-52.0); HEMOGLOBIN. 14.5 g/dL (14.0-18.0); LYMPHOCYTES % 18.3 % (20.0-50.0); MEAN CORPUSCULAR HEMOGLOBIN 28.2 pg (28.0-32.0); MEAN CORPUSCULAR VOLUME 84.3 fL (80.0-94.0); MONOCYTES % 9.2 % (2.0-8.0); NEUTROPHILS % 64.4 % (40.0-76.0); PLATELET 184 x1000/uL (130-400); RED BLOOD CELL COUNT 5.14 mill/uL (4.7-6.1); RED CELL DISTRIBUTION WIDTH 14.7 % (11.6-14.6)
[2022-04-06 11:56] LABS: CHLORIDE 109 mEq/L (98-107)
== END 2022-04-06 16:25 | disposition home or self-care (01) ==
LOC: ER 02:00
DX: K40.90 Unilateral inguinal hernia, without obstruction or gangrene, not specified as recurrent (principal); I10 Essential (primary) hypertension; F32.A Depression, unspecified; J44.9 Chronic obstructive pulmonary disease, unspecified; Z86.73 Personal history of transient ischemic attack (TIA), and cerebral infarction without residual deficits; Z88.0 Allergy status to penicillin
CPT/HCPCS: 36415; 80053; 85025; 99283

== ENCOUNTER 2022-05-13 00:40 | Emergency (ER) | payer MEDICARE, MEDICAID ==
[~2022-05-13] VITALS: Ht 167.6 cm; Wt 77.0 kg
[2022-05-13 00:47] VITALS: BP 167/86
== END 2022-05-13 04:11 | disposition left against medical advice (07) ==
LOC: ER 00:40
DX: Z53.21 Procedure and treatment not carried out due to patient leaving prior to being seen by health care provider (principal)
CPT/HCPCS: 99281

== ENCOUNTER 2025-01-11 00:25 | Inpatient (IN) | payer MEDICARE, MEDICAID ==
[~2025-01-11] VITALS: Ht 170.2 cm; Wt 75.7 kg
[~2025-01-11 00:25] MED LIST changes: -ALBU18HF2 IH; -AMLO10TA4 MT; -ASPI-1497 PO; -ATOR-2 PO; +ATROV INH; -CLOP-31 PO; -GABA-532 PO; -HYDR-4350 MT; +LEVO-65 MT; -LISI10TA26 MT; -LOSA50TA3 MT; -PANT40TA51 PO; +PRED-855 PO; +QUET25TA PO
[2025-01-11] MEDS: CEFEPIME 2,000 MG in DEXT 5% WATER 100 ML IV STA (00:57)
[2025-01-11] MEDS: METHYLPREDNISOLONE SOD SUCC 125MG/2ML (ACT-O-VIAL) IV ONE (01:00)
[2025-01-11] MEDS: ALBUTEROL (0.083%) 2.5MG/3ML NEB HHN SCH (01:00)
[2025-01-11] MEDS: IPRATROPIUM BROMIDE (0.02%) 0.5MG/2.5ML NEB HHN SCH (01:00)
[2025-01-11] MEDS: SODIUM CHLORIDE 0.9% (SEPSIS BOLUS) IV ONE (02:10)
[2025-01-11] MEDS: VANCOMYCIN 1G PREMIX 200 ML IV ONE (02:31)
[2025-01-11 02:37] LABS: BG BASE EXCESS 1.2 mmol/L (-2.0-3.0); BG CARBOXYHEMOGLOBIN 4.1 % (0.5-1.5); BG DEOXYHEMOGLOBIN 6.9 % (0.0-5.0); BG FRACTION INSPIRED OXYGEN 21; BG HCO3 ACT 27.3 mmol/L (21.0-28.0); BG METHEMOGLOBIN 0.1 % (0.5-1.5); BG OXYGEN SATURATION 92.8 % (94.0-98.0); BG OXYHEMOGLOBIN 88.9 % (94.0-98.0); BG PCO2 49.1 mmHg (35.0-48.0); BG PH 7.363 (7.350-7.450); BG PO2 65.1 mmHg (83.0-108.0); BG SAMPLE SITE RIGHT RADIAL; BG TOTAL HEMOGLOBIN 14.0 g/dL (13.5-17.5); BG VENT MODE ROOM AIR
[2025-01-11 02:41] LABS: BASOPHILS % 0.7 % (0.0-2.0); EOSINOPHILS % 9.9 % (0.0-5.0); HEMATOCRIT. 41.4 % (42.0-52.0); HEMOGLOBIN. 13.5 g/dL (14.0-18.0); LYMPHOCYTES % 13.2 % (20.0-50.0); MEAN PLATELET VOLUME 8.3 fl (7.4-10.4); MONOCYTES % 10.6 % (2.0-8.0); NEUTROPHILS % 65.6 % (40.0-76.0); PLATELET 168 x1000/uL (130-400); RED BLOOD CELL COUNT 4.82 mill/uL (4.7-6.1); RED CELL DISTRIBUTION WIDTH 15.1 % (11.6-14.6)
[2025-01-11 02:49] LABS: INR 1.0
[2025-01-11 03:04] LABS: CREATININE 1.2 mg/dL (0.6-1.3); PROTEIN TOTAL 6.2 g/dL (6.0-8.3); UREA NITROGEN BLOOD 18 mg/dL (9-23)
[2025-01-11 03:05] LABS: ASPARTATE AMINOTRANSFERASE 12 IU/L (<34)
[2025-01-11 03:06] LABS: BILIRUBIN DIRECT 0.2 mg/dL (<=3.0); BILIRUBIN TOTAL 0.5 mg/dL (0.1-1.0)
[2025-01-11] MEDS: METHYLPREDNISOLONE SOD SUCC 125MG/2ML (ACT-O-VIAL) IV NR (03:08)
[2025-01-11 03:31] LABS: CLARITY URINE CLEAR (CLEAR); COLOR URINE YELLOW (YELLOW); GLUCOSE URINE NEGATIVE (NEGATIVE); KETONES URINE NEGATIVE (NEGATIVE); LEUKOCYTE ESTERASE URINE NEGATIVE (NEGATIVE); NITRITE URINE NEGATIVE (NEGATIVE); OCCULT BLOOD URINE NEGATIVE (NEGATIVE); PH URINE 5.5 (4.5-8.0); PROTEIN URINE TRACE (NEGATIVE); SPECIFIC GRAVITY URINE 1.025 (1.005-1.030); UROBILINOGEN URINE 1.0 E.U./dL (0.2-1.0)
[2025-01-11 03:40] LABS: TROPONIN I HIGH SENSITIVITY 4 ng/L (3.0-53)
[2025-01-11 03:56] LABS: BACTERIA URINE RARE; RBC URINE NONE SEEN /hpf (0-2); SQUAMOUS EPITHELIAL CELL URINE RARE /lpf (RARE/1+); WBC URINE 0-2 /hpf (0-2)
[2025-01-11] MEDS: CEFEPIME 2,000 MG in DEXT 5% WATER 100 ML IV NR (04:15)
[2025-01-11] MEDS: MAGNESIUM 2 G PREMIX 50 ML IV NR (04:30)
[2025-01-11] MEDS ORDERED: MORPHINE SULFATE 2 MG/ML INJ (NOT FOR IM USE) IV ONE (05:13)
[2025-01-11] MEDS: IPRATROPIUM BROMIDE (0.02%) 0.5MG/2.5ML NEB ONE (05:14)
[2025-01-11] MEDS: ALBUTEROL (0.083%) 2.5MG/3ML NEB ONE (05:15)
[2025-01-11] MEDS: MORPHINE SULFATE 2 MG/ML INJ (NOT FOR IM USE) IV NR (05:26)
[2025-01-11] MEDS ORDERED: MORPHINE SULFATE 2 MG/ML INJ (NOT FOR IM USE) IV PRN (05:30)
[2025-01-11] MEDS: METHYLPREDNISOLONE SOD SUCC 40MG/ML (ACT-O-VIAL) IV SCH (05:30)
[2025-01-11] MEDS: SODIUM CHLORIDE 0.9% 1,000 ML IV SCH (05:30)
[2025-01-11] MEDS ORDERED: ONDANSETRON HCL 4MG/2ML INJ IV PRN (05:30)
[2025-01-11] MEDS: IPRATROPIUM/ALBUTEROL 0.5-3(2.5)MG/3ML NEB HHN SCH (05:30)
[2025-01-11] MEDS ORDERED: ACETAMINOPHEN 325MG TABLET PO PRN ×2 (05:30)
[2025-01-11] MEDS ORDERED: GUAIFENESIN 200MG/10ML SUGAR FREE UDC PO PRN (05:30)
[2025-01-11] MEDS ORDERED: RISPERIDONE 1MG TABLET PO SCH (05:30)
[2025-01-11] MEDS ORDERED: CEFEPIME 1GM IN DEXT 5% 50ML IV SCH (05:30)
[2025-01-11] MEDS: AZITHROMYCIN 500 MG TABLET PO SCH ×2 (05:30→17:53)
[2025-01-11] MEDS ORDERED: IPRATROPIUM/ALBUTEROL 0.5-3(2.5)MG/3ML NEB HHN PRN (05:30)
[2025-01-11] MEDS: QUETIAPINE FUMARATE 25MG TABLET PO SCH (05:45)
[2025-01-11] MEDS ORDERED: LORAZEPAM 2MG/ML UD SYRINGE IV PRN (05:45)
[2025-01-11] MEDS: MAGNESIUM 2 G PREMIX 50 ML IV ONE (05:46)
[2025-01-11] MEDS: LOSARTAN 50 MG TABLET PO SCH ×2 (06:30→13:16)
[2025-01-11] MEDS: AMLODIPINE 5MG TABLET PO SCH (06:30)
[2025-01-11] MEDS: PANTOPRAZOLE 40MG DR TABLET PO SCH (07:50)
[2025-01-11] MEDS: HYDRALAZINE 20MG/ML VIAL IV PRN (09:19)
[2025-01-11] MEDS ORDERED: LORAZEPAM 2MG/ML UD SYRINGE IV NR (09:30)
[2025-01-11] MEDS ORDERED: IOHEXOL-300 100 ML BOTTLE ONE (09:51)
[2025-01-11] MEDS ORDERED: NALOXONE HCL 0.4MG/ML VIAL IV PRN (10:00)
[2025-01-11 10:26] LABS: HEPATITIS A AB IGM NEGATIVE (Negative); HEPATITIS B CORE AB IGM NEGATIVE (Negative)
[2025-01-11] MEDS ORDERED: CLONIDINE 0.1MG TABLET PO PRN (10:30)
[2025-01-11 11:09] LABS: HEPATITIS C AB REACTIVE (Pos) (Negative)
[2025-01-11] MEDS: ENOXAPARIN 40MG/0.4ML SYR SUBCUT SCH (13:16)
[2025-01-11] MEDS: ASPIRIN 81MG EC TABLET PO SCH (13:18)
[2025-01-11 13:22] LABS: *AMPHETAMINES SCREEN URINE NEGATIVE (NEGATIVE)
[2025-01-11 13:23] LABS: *BARBITURATES SCREEN URINE NEGATIVE (NEGATIVE); *BENZODIAZEPINES SCREEN URINE NEGATIVE (NEGATIVE); *COCAINE SCREEN URINE PRESUMPTIVE POSITIVE (NEGATIVE); METHADONE URINE SCREEN NEGATIVE (NEGATIVE); OPIATES URINE SCREEN NEGATIVE (NEGATIVE); PHENCYCLIDINE URINE SCREEN NEGATIVE (NEGATIVE)
[2025-01-11 13:24] LABS: CANNABINOID URINE SCREEN NEGATIVE (NEGATIVE); ECSTASY MDMA SCREEN URINE NEGATIVE (NEGATIVE)
[2025-01-11 14:12] VITALS: BP 180/93; PULSE 98; RESP 15; TEMP 35.9176
[2025-01-11] MEDS ORDERED: CEFEPIME 2GM PREMIX 100ML IV SCH (16:00)
[2025-01-11 16:44] LABS: TROPONIN I HIGH SENSITIVITY 5 ng/L (3.0-53)
[2025-01-11] MEDS ORDERED: ENALAPRIL 0.625 MG in DEXTROSE 5% WATER 49.5 ML IV PRN (17:15)
[2025-01-11] MEDS: FERROUS SULFATE 325MG TABLET PO SCH (17:53)
[2025-01-11 20:00] VITALS: BP 133/72; PULSE 92; RESP 18; TEMP 36.1; O2SAT 97
[2025-01-11 20:56] VITALS: PULSE 89; RESP 20; O2SAT 94
[2025-01-11] MEDS ORDERED: CEFEPIME 1GM PREMIX 50ML IV SCH (21:00)
[2025-01-11] MEDS: ATORVASTATIN CALCIUM 40MG TABLET PO SCH (22:02)
[2025-01-11] MEDS: HYDRALAZINE HCL 25MG TABLET PO SCH (22:09)
[2025-01-11 22:42] LABS: TROPONIN I HIGH SENSITIVITY 4 ng/L (3.0-53)
[2025-01-12] VITALS (8 sets, daily range): BP systolic 104–154; BP diastolic 42–82; PULSE 87–100; RESP 18–22; TEMP 36.1–36.8; O2SAT 90–98
[2025-01-12] MEDS: LOSARTAN 100 MG TABLET PO SCH (08:58)
[2025-01-12] MEDS ORDERED: LOSARTAN 50 MG TABLET PO SCH (09:00)
[2025-01-12 11:32] LABS: HEMATOCRIT. 43.7 % (42.0-52.0); HEMOGLOBIN. 14.5 g/dL (14.0-18.0); MEAN PLATELET VOLUME 8.6 fl (7.4-10.4); PLATELET 210 x1000/uL (130-400); RED BLOOD CELL COUNT 5.09 mill/uL (4.7-6.1); RED CELL DISTRIBUTION WIDTH 14.8 % (11.6-14.6)
[2025-01-12 11:54] LABS: PROTEIN TOTAL 6.0 g/dL (6.0-8.3)
[2025-01-12 11:55] LABS: ASPARTATE AMINOTRANSFERASE 12 IU/L (<34); BILIRUBIN DIRECT 0.2 mg/dL (<=3.0); BILIRUBIN TOTAL 0.5 mg/dL (0.1-1.0); CREATININE 1.4 mg/dL (0.6-1.3); TRIGLYCERIDE 41 mg/dL (0-150); UREA NITROGEN BLOOD 29 mg/dL (9-23)
[2025-01-12 11:56] LABS: LDL CHOLESTEROL 85 mg/dL (5-100)
[2025-01-12 11:57] LABS: PHOSPHORUS 2.9 mg/dL (2.5-4.9)
[2025-01-12 11:58] LABS: T4 FREE 1.49 ng/dL (0.89-1.76)
[2025-01-12 15:50] LABS: TROPONIN I HIGH SENSITIVITY 4 ng/L (3.0-53)
[2025-01-13] VITALS: BP 155/70; PULSE 80; RESP 18; TEMP 36.7; O2SAT 97
[2025-01-13 04:00] VITALS: BP 140/80; PULSE 80; RESP 18; TEMP 37; O2SAT 97
[2025-01-13 18:40] LABS: LYMPHOCYTES % MANUAL 3.0 % (20.0-50.0); MONOCYTES % MANUAL 3.0 % (2.0-8.0); NEUTROPHILS % MANUAL 94.0 % (45.0-75.0); PLATELET ESTIMATE NORMAL
== END 2025-01-13 09:20 | disposition left against medical advice (07) | DRG 190 ==
LOC: ER 00:25 → 8WST 03:14 → EDBEDREQTM 05:53 → EDBEDREQ 05:53
PROVIDERS: ADMIT Hospitalist; ATTEND Hospitalist
DX: J44.1 Chronic obstructive pulmonary disease with (acute) exacerbation (principal); J96.01 Acute respiratory failure with hypoxia; K65.9 Peritonitis, unspecified; J96.02 Acute respiratory failure with hypercapnia; I16.0 Hypertensive urgency; D64.9 Anemia, unspecified; E11.9 Type 2 diabetes mellitus without complications; B19.20 Unspecified viral hepatitis C without hepatic coma; F32.A Depression, unspecified; F15.10 Other stimulant abuse, uncomplicated; Z59.00 Homelessness unspecified; Z53.29 Procedure and treatment not carried out because of patient's decision for other reasons; F19.10 Other psychoactive substance abuse, uncomplicated; I10 Essential (primary) hypertension; Z55.6 Problems related to health literacy; Z79.82 Long term (current) use of aspirin; Z79.899 Other long term (current) drug therapy; Z86.73 Personal history of transient ischemic attack (TIA), and cerebral infarction without residual deficits; Z87.442 Personal history of urinary calculi; Z88.0 Allergy status to penicillin; Z82.49 Family history of ischemic heart disease and other diseases of the circulatory system
CPT/HCPCS: 36415; 36600; 71045; 74177; 80048; 80061; 80076; 80305; 81003; 82040; 82375; 82550; 82728; 82805; 83540; 83550; 83605; 83735; 83880; 84100; 84145; 84439; 84443; 84484; 85025; 85379; 86705; 86709; 86850; 86900; 87340; 87426; 93005; 93970; 94070; 94640; 94664; 96365; 96375; 97165; 98960; 99285; 99291; A4606; A4615; J0360; J0692; J1650; J2270; J2919; J3373; J3475; J7030; J7060; J7512; Q9967